=== PATIENT | female | born 1990 | race Caucasian/White ===

== ENCOUNTER 2017-11-02 12:53 | Outpatient (RCR) | payer OTHER, SELFPAY | END 2017-11-11 23:59 | LOC: NS 12:53 | DX: E66.9 Obesity, unspecified (principal); Z68.42 Body mass index [BMI] 45.0-49.9, adult; Z71.3 Dietary counseling and surveillance | CPT/HCPCS: 97802 ==

== ENCOUNTER 2017-12-01 09:30 | Outpatient (RCR) | payer OTHER, SELFPAY | END 2017-12-12 23:59 | LOC: NS 09:30 | DX: E66.9 Obesity, unspecified (principal); Z68.42 Body mass index [BMI] 45.0-49.9, adult; Z71.3 Dietary counseling and surveillance | CPT/HCPCS: 97803 ==

== ENCOUNTER 2018-01-05 11:30 | Outpatient (RCR) | payer OTHER, SELFPAY | END 2018-01-11 23:59 | LOC: NS 11:30 | DX: E66.9 Obesity, unspecified (principal); Z68.42 Body mass index [BMI] 45.0-49.9, adult; Z71.3 Dietary counseling and surveillance | CPT/HCPCS: 97803 ==

== ENCOUNTER 2018-02-02 11:30 | Outpatient (RCR) | payer OTHER, SELFPAY | END 2018-02-11 23:59 | LOC: NS 11:30 | DX: E66.9 Obesity, unspecified (principal); Z68.42 Body mass index [BMI] 45.0-49.9, adult; Z71.3 Dietary counseling and surveillance | CPT/HCPCS: 97803 ==

== ENCOUNTER 2018-02-23 09:24 | Outpatient (RCR) | payer OTHER, SELFPAY | END 2018-03-13 23:59 | LOC: NS 09:24 | DX: E66.9 Obesity, unspecified (principal); Z68.42 Body mass index [BMI] 45.0-49.9, adult; Z71.3 Dietary counseling and surveillance | CPT/HCPCS: 97803 ==

== ENCOUNTER 2018-03-30 13:43 | Outpatient (RCR) | payer OTHER, SELFPAY | END 2018-04-13 23:59 | LOC: NS 13:43 | DX: E66.9 Obesity, unspecified (principal); Z68.42 Body mass index [BMI] 45.0-49.9, adult; Z71.3 Dietary counseling and surveillance | CPT/HCPCS: 97803 ==

== ENCOUNTER 2018-05-11 10:00 | Outpatient (RCR) | payer OTHER, SELFPAY | END 2018-05-11 23:59 | LOC: NS 10:00 | DX: E66.9 Obesity, unspecified (principal); Z68.42 Body mass index [BMI] 45.0-49.9, adult; Z71.3 Dietary counseling and surveillance | CPT/HCPCS: 97803 ==

== ENCOUNTER 2018-06-01 08:53 | Outpatient (RCR) | payer OTHER, SELFPAY | END 2018-06-13 23:59 | LOC: NS 08:53 | DX: E66.9 Obesity, unspecified (principal); Z68.42 Body mass index [BMI] 45.0-49.9, adult; Z71.3 Dietary counseling and surveillance ==

== ENCOUNTER → 2021-02-25 07:38 | Outpatient (CLI) | payer OTHER, SELFPAY ==
--- NOTE | 2021-02-25 07:50 | CT_ITS ---
STUDY: CT ABDOMEN AND PELVIS WITH AND WITHOUT CONTRAST REASON FOR EXAM: Female, 30 years old. GROSS HEMATURIA RADIATION DOSAGE (If Supplied By Facility): CTDIvol = ( 25.65 ) mGy, DLP = ( 4006.87 ) mGycm TECHNIQUE: Transaxial images were obtained from the dome of the diaphragm to the symphysis pubis without oral contrast. IV 100mL Isovue-370 was administered. Sagittal and coronal images were reconstructed. Individualized dose optimization techniques were used for this CT. COMPARISON: Comparison is made with prior examination dated 03/20/2014. FINDINGS: The visualized lung bases are unremarkable. The visualized portions of the heart are within normal limits. There is decreased attenuation of the liver consistent with steatosis. The patient is status post cholecystectomy. Normal spleen. Normal pancreas. Normal bilateral adrenal glands. Normal right kidney. Normal left kidney. Normal visualized stomach. Normal small intestine. Normal colon. The appendix is visualized and appears normal. Normal abdominal aorta. Normal inferior vena cava. There is borderline retroperitoneal lymphadenopathy with enlarged nodes no greater than 10mm in the short axis diameter. Normal urinary bladder. Small bilateral ovarian follicles. Normal abdominal wall. Normal osseous structures. CT/CT Abd/Pelvis W/WO Contrast IMPRESSION: Normal unenhanced and enhanced CT of the abdomen and pelvis. Electronically Signed: Ze Cavanaugh MD at 9:20 EDT , Service support ,
== END ==
PROVIDERS: Referring Provider Nurse Practitioner Adult Health; Visit Provider Nurse Practitioner Adult Health
DX: N30.21 Other chronic cystitis with hematuria (principal); R31.0 Gross hematuria
CPT/HCPCS: 74178; Q9967

== ENCOUNTER → 2022-08-04 | Outpatient (CLI) | payer OTHER, SELFPAY ==
[2022-08-04 09:33] LABS: Hematocrit 46.3 % (37-47); Hemoglobin 15.3 g/dL (12.0-15.0); Mean Corpuscular Hgb 28.8 pg (27.0-32.0); Platelet Count 284 K/mm3 (150-450); RBC Distribution Width CV 12.4 % (11.6-14.6); RBC Distribution Width SD 39.5 fl (35.1-43.9); Red Blood Count 5.32 M/mm3 (4.2-5.4); White Blood Count 12.6 K/mm3 (4.4-11.0)
[2022-08-04 09:35] LABS: Color, Urine Yellow (Yellow); Glucose, Dipstick Normal (Normal); Ketone-Dipstick Negative (Negative); Leukocyte Esterase-Dipstick 500 /ul (Negative); Nitrite-Dipstick Negative (Negative); Occult Blood-Urine 10 /ul (Negative); Protein-Dipstick Negative (Negative); Urine Bilirubin Dipstick Negative (Negative); Urine Clarity Clear (Clear); Urine Urobilinogen Normal (Normal)
[2022-08-04 10:13] LABS: Anion Gap 7 (5-15); BUN 11 mg/dL (7-18); BUN/Creat Ratio 10.9 RATIO (10-20); Calcium,Total 9.4 mg/dL (8.5-10.1); Chloride 107 mmol/L (98-107); Cholesterol 217 mg/dL (200); Creatinine, Serum 1.01 mg/dL (0.55-1.02); EST Glomerular Filtration Rate 67 mL/min (>60); Est Glom Filt Rate - Afr Amer 81 mL/min (>60); Ferritin 143 ng/mL (8-252); Glucose 109 mg/dL (74-106); High Density Lipoprotein 33 mg/dL; Iron 62 ug/dL (50-170); Iron Binding Capacity,Total 282 ug/dL (250-450); Potassium 3.8 mmol/L (3.5-5.1); Sodium Level 139 mmol/L (136-145); Thyroid Stim Hormone (TSH) 3.48 uIU/mL (0.358-3.74); Triglycerides 114 mg/dL; Very Low Density Lipoprotein 23 mg/dL (5-40)
[2022-08-04 10:19] LABS: Vitamin B12 584 pg/mL (211-911); Vitamin D,25 Hydroxy 22.5 ng/mL
== END | disposition home or self-care (01) ==
LOC: LAB 08:49
PROVIDERS: Referring Provider Physician Assistant; Visit Provider Physician Assistant
DX: Z79.899 Other long term (current) drug therapy (principal)
CPT/HCPCS: 36415; 80048; 80061; 81002; 82306; 82607; 82728; 82746; 83540; 83550; 84443; 85027

== ENCOUNTER 2022-08-25 14:30 | Outpatient (RCR) | payer OTHER, SELFPAY ==
--- NOTE | 2022-08-15 15:01 | HP.PTEVAL_ITS ---
Patient's Visit Information BRIE NUNO is a 31 year old F referred to Physical Therapy by Dr. Casey Grant MD with a diagnosis of Peripheral Vertigo L. Date of Evaluation: 08/15/22 Physical Therapist: ANT ThmopsonT, OCS, CSCS - Visit Plan Frequency: 1x/Week Duration: 4-6 Weeks Plan: 1xweek for 4-6 weeks as needed for. positional checks(Did L Patrick today) and monitor need for adaptation exercises. - Subjective Dizzy spells for over a year. Doc says something in L ear causing. It started insidously one year ago. Spun the first day. Lasted two hours adn called off work. it went away after two hours. It happened a few more times. Was sent to neurologist and diagnosed with migraines but meds did not work. Secondary neuro doc may sent her for therapy. Had ENT tests. Dr. Grant did some testing . MRI was clear. Now is dizzy 2-3x/every couple days lasting less than a minute. Brought on by looking down and coming back up or looking up. Getting up out of bed. Feels normal much of other times but some days she is in a funk(gloomy mood). Sleep is Good. Employed selling paint and cleaning ladies. Struggles with second job due to head movements. Hobbies: Avoids sweeping floor due to constant movement of it. Only tried meds and none have helped. - Objective Walks normal with good balance into PT. Trasnfers I. Full cervical AROM without pain, UE AROM WNL and no pain. oculomotor is unremarkable today: no nystagmus with gaze or head shake. normal pursuit and saccades. Normal VOR wiht out symptoms. - skew eye deviation. - ocular tilt. - head thrust. - R HD. - L HD for nystagmus but did have asymmetrical dizzyness mildly. Treated with L patrick adn then no dizzyness with L HD. - Balance/Special Test Scores Functional Gait Assessment Score: 30 % Disability: 0 Dizziness Score: 66 - Goals Goal 1:: abolish dizzyness x 1 week Goal Time Frame: 4-6 Weeks Goal 2:: pt work and run vaccum without symptoms Goal Time Frame: 4-6 Weeks Goal 3:: I management of condition Goal Time Frame: 4-6 Weeks Goal 4:: <10 on DHI Goal Time Frame: 4-6 Weeks - Rehabilitation Potential Physical Therapy Diagnosis: Possible BPPV L vs vestibular hypofucntion Rehabilitation Potential: Fair - Anticipated Interventions Patient/Client Instruction: Educate patient on: Condition, Plan of Care For the Purpose of:: To increase tolerance to activity/condition/position Comment: adaptation and positional ex For the Purpose of:: To increase tolerance to activity/condition/position Thank you for the opportunity to evaluate your patient. For Medicare and Medicare HMO plans, please review the plan of care and approve it. It will need to be FAXED BACK to us at [phone] for Medicare purposes. For Medicare only, by signing this I certify the plan of care. Please let me know if there are questions or concerns regarding this plan of care. Physician Signature: Date:
--- NOTE | 2022-10-20 08:11 | HP.PT.NRP ---
BRIE NUNO was seen in my office for initial evaluation on 08/15/22. The following Plan of Care was established for this patient: Initial Frequency: 1x/Week Initial Duration: 4-6 Weeks Patient/Client Instruction: Educate patient on: Condition, Plan of Care For the Purpose of:: To increase tolerance to activity/condition/position For the Purpose of:: To increase tolerance to activity/condition/position This patient was last seen in our office 08/25/22. Pertinent comments regarding their Physical therapy will appear below: Pt seen 2 visits of POC and was 95% better at last session. she was to f/u a week later but did not schedule or attend. at this point, it has been over 6 weeks and I will discontinue due to nonattendance. At this point I will be discontinuing this patient from physical therapy. I would be happy to see this patient again in the future if found appropriate by the physician. Thank you! Lionel Giraldo, DPT, OCS, CSCS Balance/Gait/Functional tests - Balance/Special Test Scores Functional Gait Assessment Score: 30 % Disability: 0 Dizziness Score: 66
== END 2022-08-25 19:00 | disposition home or self-care (01) ==
LOC: PT 14:30
PROVIDERS: Referring Provider Psychiatry & Neurology Neurology; Visit Provider Psychiatry & Neurology Neurology
DX: H81.392 Other peripheral vertigo, left ear (principal)
CPT/HCPCS: 97161; 97530

== ENCOUNTER → 2022-10-14 | Outpatient (CLI) | payer OTHER, SELFPAY ==
[2022-10-14 10:11] LABS: Anion Gap 9 (5-15); BUN 13 mg/dL (7-18); BUN/Creat Ratio 12.5 RATIO (10-20); Calcium,Total 9.2 mg/dL (8.5-10.1); Chloride 103 mmol/L (98-107); Cholesterol 202 mg/dL (200); Creatinine, Serum 1.04 mg/dL (0.55-1.02); EST Glomerular Filtration Rate 65 mL/min (>60); Est Glom Filt Rate - Afr Amer 79 mL/min (>60); Glucose 105 mg/dL (74-106); High Density Lipoprotein 33 mg/dL; Potassium 3.8 mmol/L (3.5-5.1); Sodium Level 139 mmol/L (136-145); Triglycerides 161 mg/dL; Very Low Density Lipoprotein 32 mg/dL (5-40)
[2022-10-14 10:14] LABS: Insulin 39.4 mU/L (2.6-37.6)
[2022-10-14 10:16] LABS: Hemoglobin A1c 5.4 % (3.8-5.6)
== END | disposition home or self-care (01) ==
PROVIDERS: Referring Provider Physician Assistant; Visit Provider Physician Assistant
DX: R53.83 Other fatigue (principal)
CPT/HCPCS: 36415; 80048; 80061; 83036; 83525

== ENCOUNTER 2022-10-15 07:56 | Outpatient (RCR) | payer OTHER, SELFPAY | END 2022-11-11 23:59 | LOC: NS 07:56 | DX: Z71.3 Dietary counseling and surveillance (principal); E66.01 Morbid (severe) obesity due to excess calories; Z68.42 Body mass index [BMI] 45.0-49.9, adult | CPT/HCPCS: 97802 ==

== ENCOUNTER 2022-11-12 07:58 | Outpatient (RCR) | payer OTHER, SELFPAY | END 2022-12-12 23:59 | LOC: NS 07:58 | DX: Z71.3 Dietary counseling and surveillance (principal); E66.01 Morbid (severe) obesity due to excess calories; Z68.42 Body mass index [BMI] 45.0-49.9, adult | CPT/HCPCS: 97803 ==

== ENCOUNTER 2022-12-16 07:55 | Outpatient (RCR) | payer OTHER, SELFPAY | END 2023-01-11 23:59 | LOC: NS 07:55 | DX: Z71.3 Dietary counseling and surveillance (principal); E66.01 Morbid (severe) obesity due to excess calories; Z68.42 Body mass index [BMI] 45.0-49.9, adult | CPT/HCPCS: 97803 ==

== ENCOUNTER → 2023-02-04 | Outpatient (CLI) | payer OTHER, SELFPAY ==
--- NOTE | 2023-02-04 11:46 | NM_ITS ---
CLINICAL: 32-year-old female with history of chronic nausea and early satiety. SEMI-SOLID PHASE 99m Tc SULFUR COLLOID GASTRIC EMPTYING STUDY COMPARISON: None available FINDINGS: The patient was administered 1.1 mCi of 99m Tc sulfur colloid mixed with oatmeal and consumed per os. Image acquisitions in the anterior-posterior projections were obtained for 60 minutes. There is prompt visualization of the stomach. There is no gastroesophageal reflux identified. First order kinetics are maintained throughout the duration of the acquisitions. The T ? linear fit was calculated to be 52.27 minutes, (Normal: 12-56 minutes). NM/Gastric Emptying Study IMPRESSION: 1. NORMAL 99m Tc sulfur colloid semi-solid phase (oatmeal) gastric emptying imaging examination. A. There is upper limits of normal and preserved semi-solid phase gastric emptying compared to normal controls with maintained first order kinetics throughout all components of the examination. (Andrae et al, J Nucl Med Tech 38: 186, 2010). Electronically Signed: Nikolas Villalobos, at 23:30 EDT ,
== END | disposition home or self-care (01) ==
LOC: NM 11:45
PROVIDERS: Referring Provider Nurse Practitioner Adult Health; Visit Provider Nurse Practitioner Adult Health
DX: R11.10 Vomiting, unspecified (principal); R68.81 Early satiety
CPT/HCPCS: 78264; A9541

== ENCOUNTER 2023-02-10 11:42 | Outpatient (RCR) | payer OTHER, SELFPAY | END 2023-02-11 23:59 | LOC: NS 11:42 | DX: Z71.3 Dietary counseling and surveillance (principal); E66.01 Morbid (severe) obesity due to excess calories | CPT/HCPCS: 97803 ==

== ENCOUNTER → 2023-02-13 | Outpatient (CLI) | payer OTHER, SELFPAY ==
--- NOTE | 2023-02-13 08:42 | US_ITS ---
INDICATION: epigastric pain, early satiety -- RUQ EXAMINATION: Ultrasound US Abdomen RUQ (limited) TECHNIQUE: Sanchez scale and color doppler imaging was performed of the right upper quadrant. COMPARISON: 02/25/2021 CT. FINDINGS: LIVER: Normal echotexture. No evidence of a mass. No intrahepatic duct dilation. Hepatomegaly with the right lobe liver length measuring 22.3 cm. Diffuse increased echogenicity of the liver. GALLBLADDER: Status post cholecystectomy. COMMON BILE DUCT: Mildly dilated measuring 7 mm in diameter. PANCREAS: Visualized portions of the pancreas appear normal. RIGHT KIDNEY: Unremarkable. FREE FLUID: No free fluid in the right upper quadrant. US/Abdomen Limited IMPRESSION: Hepatomegaly and fatty infiltration of the liver. Electronically Signed: Dmitriy Beaver DO at 22:54 EDT ,
== END | disposition home or self-care (01) ==
LOC: US 08:41
PROVIDERS: Referring Provider Nurse Practitioner Adult Health; Visit Provider Nurse Practitioner Adult Health
DX: R10.13 Epigastric pain (principal); R68.81 Early satiety
CPT/HCPCS: 76705

== ENCOUNTER 2023-03-12 08:43 | Outpatient (RCR) | payer OTHER, SELFPAY | END 2023-03-13 23:59 | LOC: NS 08:43 | DX: Z71.3 Dietary counseling and surveillance (principal); E66.01 Morbid (severe) obesity due to excess calories; Z68.42 Body mass index [BMI] 45.0-49.9, adult | CPT/HCPCS: 97803 ==

== ENCOUNTER 2023-04-02 07:25 | Day surgery (SDC) | payer OTHER, SELFPAY ==
--- NOTE | 2023-04-02 07:38 | HP.PCM_ITS ---
History and Physical Date of Admission: 04/02/23 Chief Complaint: chronic vomiting Details: BRIE NUNO, is a 32 F who presents to the office today for chronic vomiting that began end of 2021. She had had intermittent vomiting for maybe the year prior. Now the vomiting occurs daily, different times of day. Can be 1-4x per day. No nausea. She gets a squeezing epigastic pain, then churning, then vomits. The epigastric pain lasts about an hour afterwards. Pain stays middle of upper abd. Emesis is undigested food after dinner. Eats dinner 7 pm, typically vomits 10 min after dinner. Can have bile emesis in the morning before eating. Gets full quickly. No relief with ondansetron. Some relief of the cramping pain with dicyclomine, but vomiting persists. No hx of heartburn or acid reflux. Neither omeprazole nor famotidine has helped with vomiting. Takes Linzess 145 mcg daily, has been on it for about 2 yrs, prior to that she m ight have constipation for a week and then bouts of diarrhea. Now bowels are normal. No melena or hematochezia. 09/2022 labs: creat 1.04, hgb a1c 5.4 s/p cholecystectomy 2009 PMH includes asthma, depression, anxiety, IBS, morbid obesity, PCOS, vertigo, migraines No marijuana ROS Const Constitutional: Positive for fatigue ENT ENT: No difficulty swallowing Cardio Cardiology: Positive for leg pain with exertion Gastro GI: Positive for abdominal pain and vomiting; No belching, bloating, change in bowel habits, change in stool character, coffee ground emesis, constipation, cramping, diarrhea, heartburn, difficulty swallowing, feeling full early, excessive flatus, incontinent of stools, Vomiting blood/hematemesis, Blood in stool, loose stools, Black,tarry stools, nausea/dyspepsia, pain with swallowing or other Musc Musculoskeletal: Positive for muscle cramps, leg pain at night and leg pain with exertion; No joint pain Skin Skin: No yellowing of the eye or itchy eyes Psych Psychiatric: Positive for anxiety, Positive for depression, Positive for Behavioral Problems and Positive for obsessions/compulsions Endo Endocrine: Positive for fatigue Aller/Imm Allergy/Immunologic: No itchy eyes Jose Maria/Lymp Hematologic/Lymphatic: Positive for easy bruising; No easy bleeding Exam Const General: cooperative and comfortable Nutritional Appearance: obese Orientation: alert, awake and oriented x3 Eyes Sclera: sclerae normal Resp Effort & Inspection: normal respiratory effort GI Inspection: obesity Palpation: soft, no hepatosplenomegaly, no masses and tender in the epigastrum Quality Reporting Tobacco Screening ([facility] 138) Smoking Status: Never smoker Assessment and Plan Assessment and Plan (1) Vomiting: Status: Chronic Plan: 32 yo female with chronic vomiting--typically after supper, preceded by epigastric pain. Symptoms began before she started Latuda. EGD to eval for bile acid reflux, H pylori, PUD, pyloric stenosis or other; f/u office visit after EGD to review results Gastric emptying study Trial of azithromycin 250 mg daily x 1 wk to see if that helps symptoms at all Consider US or HIDA (2) Early satiety: Status: Chronic Plan: as above (3) Epigastric abdominal pain: Status: Chronic Plan: as above Orders: Orders Gastric Emptying Study Today R11.10 - Vomiting, unspecified, R68.81 - Early satiety Medications: New azithromycin 250 mg PO DAILY 7 days 7 tabs 0RF I have examined the patient and the H&P has been reviewed. There are no clinical changes since date of exam.
[2023-04-02] MEDS: Lactated Ringers 1,000 ML 15 ML IV (07:51)
[2023-04-02 07:52] VITALS: BP 146/92; PULSE 80; RESP 18; TEMP 36.1; O2SAT 99; BMI 47.6
[2023-04-02 07:55] LABS: Internal QC Validated? YES +Cl - CLEAR BKGD; Pregnancy, Urine Negative Negative
--- NOTE | 2023-04-02 08:30 | IMM_PTH ---
PATIENT: BRIE NUNO LOC: EN U#:[id number] AGE/SX: 32/F ROOM: RE04/02/[address]: Dr. Larry Kirk DO : 1990 BED: DIS: 04/02/2023 SPEC #: [id number] RECD: 04/02/23 13:41 STATUS: MISAEL REQ #: [id number] CHAZ: 04/02/23 08:[address]: Larry Kirk DEPT: IMMUNOHISTOCHEMISTRY RECD BY: Lauren Gallagher ENTERED: 04/02/23 13:44 SP TYPE: IMMUNO OTHR DR: Dr. Edyta Huggins DO Tissues: B - Stomach, NOS Procedures: H Pylori (initial) PHYSICIAN & INSTITUTION [place] [id number] SPECIMEN INFORMATION: Tissue Source: B - Gastric body Clinical Info: Vomiting, early satiety, epigastric abdominal pain Specimen Number: [id number] CPT code: 03873 METHODOLOGY: Deparaffinized sections of prefer/formalin-fixed tissue or PAP/DQ stained slides are incubated with monoclonal/polyclonal antibodies/oligonucleotide probes. Localization is made via biotin free immunoperoxidase method. Appropriate controls are performed and reacted as expected. Results on target cell population are indicated in the following table: RESULTS: ANTIBODY / CLONE RESULT Block B H Pylori (polyclonal) negative These tests were developed and their performance characteristics determined by [facility]. They may not have been cleared or approved by the U.S. Food and Drug Administration. The FDA has determined that such clearance or approval is not necessary. The above immunohistochemical/dualISH markers are ordered and reviewed by the Pathologist. INTERPRETATION: B. Gastric body, biopsy: Negative for Helicobacter pylori organisms. SJ:александр 04/03/2023
--- NOTE | 2023-04-02 08:30 | EGD_PTH ---
PATIENT: BRIE NUNO LOC: EN U#:[id number] AGE/SX: 32/F ROOM: RE04/02/[address]: Dr. Larry Kirk DO : 1990 BED: DIS: 04/02/2023 SPEC #: [id number] RECD: 04/02/23 10:43 STATUS: MISAEL YANIQUE #: [id number] HCAZ: 04/02/23 08:[address]: Larry Kirk DEPT: SURGICAL PATHOLOGY RECD BY: Codi Abdi ENTERED: 04/02/23 11:50 SP TYPE: EGD BIOPSY OT DR: Dr. Edyta Huggins DO Tissues: A - Duodenum, NOS B - Gastric mucous membrane C - Esophagus, NOS Procedures: Special Stain Group II Surgery Specimen Level IV Alcian Blue/PAS (control) HEADER OPERATION: EGD ([facility]) PRE-OP DIAGNOSIS: Vomiting, early satiety, epigastric abdominal pain TISSUE SUBMITTED: A - Duodenum biopsy, B - Gastric body biopsy, C - Distal esophagus biopsy MICROSCOPIC DIAGNOSIS A. Duodenum, biopsy: Fragments of duodenal mucosa, no pathologic diagnosis. B. Gastric body, biopsy: Minimal gastritis. See microscopic description and comment. C. Distal esophagus, biopsy: Fragments of gastroesophageal mucosa with mild chronic inflammation. Intestinal metaplasia (goblet cell metaplasia) not identified. See comment. SJ:rg 04/03/2023 COMMENT B. The results of immunohistochemistry for Helicobacter pylori will be reported separately ([id number]). C. Alcian blue/PAS stain with matched control is used in the evaluation of the specimen. MICROSCOPIC DESCRIPTION Slides are reviewed. B. The specimen shows fragments of gastric mucosa with chronic inflammatory cell infiltrates in the lamina propria consisting of lymphocytes and plasma cells, consistent with minimal chronic gastritis. GROSS DESCRIPTION A - Received in fixative is one container labeled with the patient's name and designated duodenum biopsy. The specimen consists of multiple irregular fragments of light le soft tissue that in aggregate measure 0.8 x 0.5 x 0.1 cm. The specimen is totally submitted in one cassette. B - Received in fixative is one container labeled with the patient's name and designated gastric body. The specimen consists of two irregular fragments of light le soft tissue that in aggregate measure 0.7 x 0.5 x 0.1 cm. The specimen is totally submitted in one cassette. C - Received in fixative is one container labeled with the patient's name and designated distal esophagus. The specimen consists of multiple irregular fragments of light le soft tissue that in aggregate measure 1.0 x 0.5 x 0.1 cm. The specimen is totally submitted in one cassette. / AM:александр 04/02/2023 TC:3 CPT: 34125 x3, 23090
[2023-04-02 08:45] VITALS: BP 130/78; BP 146/92; PULSE 96; RESP 16; TEMP 36.2; O2SAT 97
--- NOTE | 2023-04-02 08:50 | OP.EGD_ITS ---
Patient Name: Danni Atkins Procedure Date: 04/02/2023 8:24 AM Date of : 1990 Age: 32 Procedure: Upper GI endoscopy Indications: Epigastric abdominal pain, Functional Dyspepsia Providers: Larry Kirk DO Referring MD: Larry Kirk DO Medicines: Monitored Anesthesia Care Patient Profile: This is a 32 year old female. Refer to note in patient chart for documentation of history and physical. Patient has symptoms of acute abdominal cramping and acute epigastric abdominal pain. Complications: No immediate complications. Procedure: Pre-Anesthesia Assessment: - Prior to the procedure, a History and Physical was performed, and patient medications and allergies were reviewed. The patient is competent. The risks and benefits of the procedure and the sedation options and risks were discussed with the patient. All questions were answered and informed consent was obtained. Patient identification and proposed procedure were verified by the physician. Mental Status Examination: normal. Prophylactic Antibiotics: The patient does not require prophylactic antibiotics. Prior Anticoagulants: The patient has taken no previous anticoagulant or antiplatelet agents. After reviewing the risks and benefits, the patient was deemed in satisfactory condition to undergo the procedure. The anesthesia plan was to use monitored anesthesia care (MAC). Immediately prior to administration of medications, the patient was re-assessed for adequacy to receive sedatives. The heart rate, respiratory rate, oxygen saturations, blood pressure, adequacy of pulmonary ventilation, and response to care were monitored throughout the procedure. The physical status of the patient was re-assessed after the procedure. After obtaining informed consent, the endoscope was passed under direct vision. Throughout the procedure, the patient's blood pressure, pulse, and oxygen saturations were monitored continuously. The gastroscope was introduced through the mouth, and advanced to the second part of duodenum. The upper GI endoscopy was accomplished without difficulty. The patient tolerated the procedure well. Scope In: 8:35:01 AM Scope Out: 8:40:43 AM Total Procedure Duration Time 0 hours 5 minutes 42 seconds Findings: The Z-line was irregular and was found 40 cm from the incisors. Biopsies were taken with a cold forceps for histology. Verification of patient identification for the specimen was done. Estimated blood loss was minimal. Bilious fluid was found in the stomach. Fluid aspiration was performed. Patchy mildly erythematous mucosa without bleeding was found in the gastric body. Biopsies were taken with a cold forceps for histology. Verification of patient identification for the specimen was done. Estimated blood loss was minimal. Patchy granular mucosa was found in the duodenal bulb. Biopsies were taken with a cold forceps for histology. Verification of patient identification for the specimen was done. Estimated blood loss was minimal. Impression: - Z-line irregular, 40 cm from the incisors. Biopsied. - Bilious gastric fluid. Fluid aspiration performed. - Erythematous mucosa in the gastric body. Biopsied. - Granular mucosa in the duodenal bulb. Biopsied. Recommendation: - Discharge patient to home. - Resume previous diet. - Continue present medications. - Await pathology results. Procedure Code(s): --- Professional --- 11285, Esophagogastroduodenoscopy, flexible, transoral; with biopsy, single or multiple CPT copyright 2017 [employer] [place] [employer]. All rights reserved. The codes documented in this report are preliminary and upon doctor of optometry review may be revised to meet current compliance requirements. Larry Kirk DO 04/02/2023 8:50:11 AM This report has been signed electronically. Number of Addenda: 0 Note Initiated On: 04/02/2023 8:24 AM
--- NOTE | 2023-04-02 08:50 | OP.CCLET_ITS ---
04/02/2023 Edyta Huggins Re : Upper GI endoscopy procedure for Danni Atkins Dear Joseluis This procedure was performed on March. My impressions and recommendations are as follows: Impressions : - Z-line irregular, 40 cm from the incisors. Biopsied. - Bilious gastric fluid. Fluid aspiration performed. - Erythematous mucosa in the gastric body. Biopsied. - Granular mucosa in the duodenal bulb. Biopsied. Recommendations : - Discharge patient to home. - Resume previous diet. - Continue present medications. - Await pathology results. My findings are described in the full procedure note, which is enclosed. If I can be of further assistance, please feel free to contact me at . Sincerely, Larry Kirk, 04/02/2023 8:50:11 AM This report has been signed electronically.
[2023-04-02 08:59] VITALS: BP 123/75; BP 146/92; PULSE 82; RESP 18; O2SAT 98
[2023-04-02 09:02] VITALS: BP 126/76; BP 146/92; PULSE 88; RESP 18; TEMP 36.2; O2SAT 97
[2023-04-02 09:13] VITALS: BP 146/92
== END 2023-04-02 09:43 | disposition home or self-care (01) ==
LOC: EN 07:26 → AC 07:27
PROVIDERS: Anesthesiology; Visit Provider Internal Medicine Gastroenterology
PROC: 0DJ08ZZ Inspection of Upper Intestinal Tract, Via Natural or Artificial Opening Endoscopic (ICD-10-PCS; CPT 43235; principal; 2023-04-02 08:25)
DX: K29.70 Gastritis, unspecified, without bleeding (principal); E66.01 Morbid (severe) obesity due to excess calories; Z90.49 Acquired absence of other specified parts of digestive tract; J45.909 Unspecified asthma, uncomplicated; K21.9 Gastro-esophageal reflux disease without esophagitis; Z79.899 Other long term (current) drug therapy
CPT/HCPCS: 43239; 81025; 88305; 88313; 88342; J7120; J2405

== ENCOUNTER → 2023-04-17 | Outpatient (CLI) | payer OTHER, SELFPAY ==
[2023-04-17 10:26] LABS: Platelet Count 268 K/mm3 (150-450); Reticulocyte Count 2.57 % (0.5-1.5)
[2023-04-17 10:31] LABS: Erythrocyte Sedimentation Rate 9 mm/hr (0-30)
[2023-04-17 10:32] LABS: Prothrombin Time (Protime)PT. 13.4 SECONDS (11.7-14.9)
[2023-04-17 10:50] LABS: Amylase 53 U/L (25-115); Ferritin 154 ng/mL (8-252); Iron 71 ug/dL (50-170); Iron Binding Capacity,Total 271 ug/dL (250-450); LDH 177 U/L (84-246); Lipase 32 U/L (13-75)
[2023-04-22 00:06] LABS: Anti-Centromere B Ab <0.2 AI (0.0-0.9); Anti-Chromatin <0.2 AI (0.0-0.9); Anti-Jo <0.2 AI (0.0-0.9); Anti-Mitochondrial AB <20.0 Units (0.0-20.0); Anti-Scleroderma-70 AB 0.3 AI (0.0-0.9); Anti-dsDNA Ab <1 IU/mL (0-9); Beef <0.10 kU/L (Class 0); Chocolate <0.10 kU/L (Class 0); Clam <0.10 kU/L (Class 0); Codfish <0.10 kU/L (Class 0); Corn <0.10 kU/L (Class 0); Egg, White <0.10 kU/L (Class 0); Egg, Whole <0.10 kU/L (Class 0); Milk (Cow) <0.10 kU/L (Class 0); Peanut <0.10 kU/L (Class 0); Pork <0.10 kU/L (Class 0); SCALLOP <0.10 kU/L (Class 0); SESAME SEED <0.10 kU/L (Class 0); SJOGREN'S Anti-SS-A test < 0.2 AI (0.0-0.9); SJOGREN'S Anti-SS-B test < 0.2 AI (0.0-0.9); Shrimp <0.10 kU/L (Class 0); Smith Ab <0.2 AI (0.0-0.9); Soybean <0.10 kU/L (Class 0); Walnut, (Food) <0.10 kU/L (Class 0); Wheat <0.10 kU/L (Class 0)
[2023-04-23 18:08] LABS: Albumin 3.6 g/dL (2.9-4.4); Alpha-1-Globulins 0.2 g/dL (0.0-0.4); Alpha-2-Globulins 0.9 g/dL (0.4-1.0); Anti-Smooth Muscle ABS 4 Units (0-19); Cytoplasmic Ab (C-ANCA) <1:20 titer (Neg:<1:20); Endomysial Antibody IgA Negative (Negative); Haptoglobin 166 mg/dL (33-278); Immunoglobulin A 128 mg/dL (87-352); Immunoglobulin E 20 IU/mL (6-495); Immunoglobulin G 1029 mg/dL (586-1602); Immunoglobulin M 51 mg/dL (26-217); PROEL- TOTAL PROTEIN 6.8 g/dL (6.0-8.5); Perinuclear Ab (P-ANCA) <1:20 titer (Neg:<1:20); t-Transglutaminase IgA <2 U/mL (0-3)
== END | disposition home or self-care (01) ==
LOC: LAB 08:59
PROVIDERS: Referring Provider Internal Medicine Gastroenterology; Visit Provider Internal Medicine Gastroenterology
DX: R10.13 Epigastric pain (principal); R11.10 Vomiting, unspecified
CPT/HCPCS: 36415; 82150; 82533; 82728; 82784; 82785; 83010; 83516; 83540; 83550; 83615; 83690; 84165; 85045; 85610; 85652; 86003; 86005; 86140; 86225; 86235; 86255; 86256; 86334

== ENCOUNTER → 2023-04-30 | Outpatient (CLI) | payer OTHER, SELFPAY ==
--- NOTE | 2023-04-30 09:16 | US_ITS ---
STUDY: ABDOMINAL ULTRASOUND - ELASTOGRAPHY REASON FOR VISIT: Female, 32 years old. Fatty liver. TECHNIQUE: Liver stiffness measurements were obtained on a [employer] RS 85 ultrasound machine using a CA 1-7 probe following the SRU guidelines. 3 measurements were obtained using a 2-D-SWE method. TheIQR/M was 22% suggesting a quality data set. TECHNICAL QUALITY: Adequate. COMPARISON: None. FINDINGS: Liver: There is no demonstrated mass lesion. Median liver stiffness measured 4 kPa. Abdomen: There is no demonstrated mass lesion. US/Elastography Parenchyma/Organ IMPRESSION: Liver stiffness measures 4 kPa compatible with FO (Normal) Metavir score. Electronically Signed: Ze Cavanaugh MD at 12:07 EDT ,
== END | disposition home or self-care (01) ==
LOC: US 09:15
PROVIDERS: Referring Provider Internal Medicine Gastroenterology; Visit Provider Internal Medicine Gastroenterology
DX: K75.81 Nonalcoholic steatohepatitis (NASH) (principal)
CPT/HCPCS: 76981

== ENCOUNTER → 2023-05-06 | Outpatient (CLI) | payer OTHER, SELFPAY ==
[2023-05-06 08:34] LABS: Vitamin B12 512 pg/mL (211-911); Vitamin D,25 Hydroxy 26.9 ng/mL
[2023-05-06 08:38] LABS: ALB/GLOB Ratio 0.9 RATIO (0.9-2.4); AST(SGOT) 29 U/L (15-37); Alanine Aminotransfer ALT/SGPT 50 U/L (13-56); Albumin, Serum 3.5 g/dL (3.2-5.0); Alkaline Phosphatase 81 U/L (45-117); Anion Gap 4 (5-15); BUN 14 mg/dL (7-18); BUN/Creat Ratio 13.5 RATIO (10-20); Calcium,Total 8.9 mg/dL (8.5-10.1); Chloride 105 mmol/L (98-107); Creatinine, Serum 1.04 mg/dL (0.55-1.02); EST Glomerular Filtration Rate 65 mL/min (>60); Est Glom Filt Rate - Afr Amer 78 mL/min (>60); Globulin 3.8 g/dL (2.2-4.2); Glucose 105 mg/dL (74-106); Magnesium 2.2 mg/dL (1.6-2.6); Potassium 3.9 mmol/L (3.5-5.1); Protein, Total 7.3 g/dL (6.4-8.2); Sodium Level 137 mmol/L (136-145); Thyroid Stim Hormone (TSH) 4.64 uIU/mL (0.358-3.74)
== END | disposition home or self-care (01) ==
LOC: LAB 07:31
DX: R25.2 Cramp and spasm (principal); I73.9 Peripheral vascular disease, unspecified
CPT/HCPCS: 36415; 80053; 82306; 82607; 83735; 84443

== ENCOUNTER 2023-05-12 08:22 | Outpatient (RCR) | payer OTHER, SELFPAY | END 2023-05-14 23:59 | LOC: NS 08:22 | DX: Z71.3 Dietary counseling and surveillance (principal); E66.01 Morbid (severe) obesity due to excess calories; Z68.42 Body mass index [BMI] 45.0-49.9, adult | CPT/HCPCS: 97803 ==

== ENCOUNTER → 2023-05-26 | Outpatient (CLI) | payer OTHER, SELFPAY ==
[2023-05-26 09:22] LABS: T3 Total - Triiodothyronine 1.41 ng/mL (0.6-1.81); Vitamin D,25 Hydroxy 28.5 ng/mL
[2023-05-26 09:28] LABS: T4 Free Direct 0.93 ng/dL (0.76-1.46); Thyroid Stim Hormone (TSH) 3.47 uIU/mL (0.358-3.74)
[2023-05-27 19:07] LABS: Thyroglobulin Antibody < 1.0 IU/mL (0.0-0.9); Thyroid Peroxidase AB < 9 IU/mL (0-34)
== END | disposition home or self-care (01) ==
LOC: LAB 08:04
DX: R79.89 Other specified abnormal findings of blood chemistry (principal); E55.9 Vitamin D deficiency, unspecified
CPT/HCPCS: 36415; 82306; 84439; 84443; 84480; 86376; 86800

== ENCOUNTER 2023-06-03 08:23 | Outpatient (RCR) | payer OTHER, SELFPAY | END 2023-06-13 23:59 | LOC: NS 08:23 | DX: Z71.3 Dietary counseling and surveillance (principal); E66.01 Morbid (severe) obesity due to excess calories; Z68.42 Body mass index [BMI] 45.0-49.9, adult | CPT/HCPCS: 97803 ==

== ENCOUNTER → 2023-07-01 | Outpatient (CLI) | payer OTHER, SELFPAY ==
[2023-07-01 09:25] LABS: Hepatitis B Surface Antibody Non-Reactive
== END | disposition home or self-care (01) ==
LOC: LAB 08:24
DX: Z09 Encounter for follow-up examination after completed treatment for conditions other than malignant neoplasm (principal)
CPT/HCPCS: 36415; 86706

== ENCOUNTER 2023-07-30 08:51 | Outpatient (RCR) | payer OTHER, SELFPAY | END 2023-08-13 23:59 | LOC: NS 08:51 | DX: Z71.3 Dietary counseling and surveillance (principal); E66.01 Morbid (severe) obesity due to excess calories; Z68.43 Body mass index [BMI] 50.0-59.9, adult | CPT/HCPCS: 97803 ==

== ENCOUNTER → 2023-09-02 | Outpatient (CLI) | payer OTHER, SELFPAY ==
[2023-09-02 09:14] LABS: Erythrocyte Sedimentation Rate 4 mm/hr (0-30)
[2023-09-02 09:16] LABS: Absolute Lymphocyte Count 3.15 X10^3/uL (0.83-4.51); Basophil# 0.04 X10^3/uL; Basophil% 0.4 % (0-1); Eosinophil# 0.22 X10^3/uL; Hematocrit 46.1 % (37-47); Lymphocyte # 3.15 X10^3/ul (0.83-4.51); Lymphocyte % 28.4 % (19-41); Mean Corp Hgb Conc 32.5 g/dL (32-36); Mean Corpuscular Hgb 28.3 pg (27.0-32.0); Monocyte# 0.65 X10^3/uL; Monocyte% 5.9 % (0-10); NRBC Flagged by Analyzer 0 % (0-5); Neutrophil % 62.8 % (47-70); Platelet Count 261 K/mm3 (150-450); RBC Distribution Width CV 12.2 % (11.6-14.6); White Blood Count 11.1 K/mm3 (4.4-11.0)
[2023-09-02 09:31] LABS: Vitamin B12 613 pg/mL (211-911); Vitamin D,25 Hydroxy 48.4 ng/mL
[2023-09-02 09:43] LABS: ALB/GLOB Ratio 0.8 RATIO (0.9-2.4); AST(SGOT) 34 U/L (15-37); Alanine Aminotransfer ALT/SGPT 53 U/L (13-56); Albumin, Serum 3.4 g/dL (3.2-5.0); Alkaline Phosphatase 85 U/L (45-117); Anion Gap 5 (5-15); BUN 12 mg/dL (7-18); BUN/Creat Ratio 12.1 RATIO (10-20); Bilirubin, Direct 0.09 mg/dL (0.00-0.30); Calcium,Total 9.3 mg/dL (8.5-10.1); Chloride 106 mmol/L (98-107); Cholesterol 222 mg/dL (200); Creatinine, Serum 0.99 mg/dL (0.55-1.02); EST Glomerular Filtration Rate 68 mL/min (>60); Est Glom Filt Rate - Afr Amer 82 mL/min (>60); Glucose 116 mg/dL (74-106); High Density Lipoprotein 32 mg/dL; Potassium 3.9 mmol/L (3.5-5.1); Protein, Total 7.4 g/dL (6.4-8.2); Sodium Level 138 mmol/L (136-145); Thyroid Stim Hormone (TSH) 3.22 uIU/mL (0.358-3.74); Triglycerides 162 mg/dL; Very Low Density Lipoprotein 32 mg/dL (5-40)
[2023-09-02 09:51] LABS: Hemoglobin A1c 5.6 % (3.8-5.6)
[2023-09-03 12:08] LABS: Anti-Centromere B Ab <0.2 AI (0.0-0.9); Anti-Chromatin <0.2 AI (0.0-0.9); Anti-Jo <0.2 AI (0.0-0.9); Anti-Scleroderma-70 AB 0.3 AI (0.0-0.9); Anti-dsDNA Ab <1 IU/mL (0-9); RNP Ab 0.9 AI (0.0-0.9); SJOGREN'S Anti-SS-A test < 0.2 AI (0.0-0.9); SJOGREN'S Anti-SS-B test < 0.2 AI (0.0-0.9); Smith Ab <0.2 AI (0.0-0.9)
== END | disposition home or self-care (01) ==
LOC: LAB 08:15
PROVIDERS: Internal Medicine Gastroenterology
DX: R25.2 Cramp and spasm (principal); F33.1 Major depressive disorder, recurrent, moderate; E66.01 Morbid (severe) obesity due to excess calories; R73.9 Hyperglycemia, unspecified; K58.9 Irritable bowel syndrome, unspecified
CPT/HCPCS: 36415; 80053; 80061; 82248; 82306; 82607; 83036; 84443; 85025; 85652; 86140; 86225; 86235

== ENCOUNTER → 2023-10-13 | Outpatient (CLI) | payer OTHER, SELFPAY ==
--- OUTSIDE RECORDS SUMMARY | 2023-10-13 13:38 | XMS RPT_ITS | CCD ---
Author Name Unknown Address [address] [place] [address] Organization [facility] Care Team Providers Care Manufacturing Area Manager Name Role Phone RUIZ HOSKINS, DR ARCINIEGA Primary Care Physician [phone] ADRIAN BRIGHT Attending Unavailable SYSTEM, PROVIDER NOT IN Primary Care Unavaila ble PROVIDER, UNKNOWN Attending Unavailable PROVIDER, UNKNOWN Admitting Unavailable FREDDY ALMEIDA Referring Unavailable RUIZ HOSKINS, DR ARCINIEGA Primary Care Physician TEDDY PERALES Attending Unavailable SUZE MELCHOR Referring Unavailable RUIZ HOSKINS, DR ARCINIEGA Primary Care Physician Suze Melchor DO Primary Care Provider RUIZ HOSKINS, DR ARCINIEGA Primary Care Unavailable PEDRO CHOWDHURY PA-C Attending Unavailab le RUIZ , DR ARCINIEGA Attending Unavailable RUIZ DO, DR ARCINIEGA Primary Care Unavailable RUIZ , DR ARCINIEGA Attending Unavailable RUIZ , DR ARCINIEGA Primary Care Unavailable RUIZ HOSKINS, DR ARCINIEGA Primary Care Unavailable EMI HOPEPR MD Attending Unavailable RUIZ , DR ARCINIEGA Attending Unavailable RUIZ DO, DR ARCINIEGA Primary Care Unavailable RUIZ , DR ARCINIEGA Primary Care Unavailable MORGAN FUNK MD Attending Unavailable Allergies Allergy Classification Reported Allergen(s) Allergy Type Date of Onset Reaction(s) Facility (11 sources) Acetaminophen / Codeine; Translations: [acetaminophen-code ine] Drug Allergy Unknown (qualifier value) [facility] (12 sources) Acetaminophen / HYDROcodone; Translations: [acetaminophen-hydr ocodone] Drug Allergy 02-07-20 17 Latex (substance), [facility] (13 sources) Latex; Translations: [LATEX] Allergy to substance 02-07-20 17 [facility] (12 sources) Penicillin; Translations: [penicillin] Drug Allergy 02-07-20 17 Edema (finding), Swelling [facility] (12 sources) Sulfamethoxazole / Trimethoprim; Translations: [sulfamethoxazole-t rimethoprim] Drug Allergy 10-13-19 Weal (disorder), [facility] (1 source) Acetaminophen / Codeine; Translations: [ACETAMINOPHEN-CODE INE] Drug Allergy 10-26-19 [facility] (1 source) Acetaminophen / HYDROcodone; Translations: [HYDROCODONE-ACETAM INOPHEN] Drug Allergy 10-26-19 [facility] (1 source) peanut allergenic extract; Translations: [PEANUT] Drug Allergy 10-26-19 [facility] (1 source) Penicillins; Translations: [PENICILLINS] Propensity to adverse reactions to drug (disorder) 10-26-19 [facility] (1 source) Sulfonamides (Antibiotic); Translations: [SULFA (SULFONAMIDE ANTIBIOTICS)] Propensity to adverse reactions to drug (disorder) 10-26-19 [facility] (9 sources) peanut Food allergy anaphylaxis [facility] (1 source) Acetaminophen Drug Allergy 04-03-20 17 Hives, Other: See Comments, Rash, Swelling [facility] Work Phone: Medications Current Medications Medication Drug Class(es) Dates Sig (Normalized) Sig (Original) [id number] 200 actuat albuterol 0.09 mg/actuat metered dose inhaler (12 sources) beta2-Adrenergic Agonist Start: 02-26-2023 take 2 puff(s) by inhalation every four hours as needed for wheezing ProAir HFA MDI (90 mcg/inh) inhalation aerosol 2 puff(s), Inhalation, q4h, PRN as needed for wheezing, # 8.5 gram(s), 1 Refill(s), Pharmacy: [id number], Cough, 170.2, cm, 02/26/23 7:36:00 EDT, Height, kg, 02/26/23 7:36:00 EDT, Dosing Weight Start Date: 02/26/23 Status: Ordered Completed/Discontinued Medications Medication Drug Class(es) Dates Sig (Normalized) Sig (Original) benzonatate 100 mg oral capsule (1 source) Non-narcotic Antitussive Start: 10-13-2019 take 2 capsules by mouth every eight hours as needed benzonatate (TESSALON PERLE) 100 mg capsule Take 2 capsules by mouth three times daily as needed. 30 capsule 0 10/13/2019 Active Problems Active Problems Problem Classification Problem Date Documented Da te Episodic/Chronic Anxiety disorders (11 sources) Generalized anxiety disorder 04-05-2021 Chronic Asthma (11 sources) Asthma 08-23-2020 Chronic Conditions associated with dizziness or vertigo (8 sources) Other peripheral vertigo, left ear; Translations: [Vertigo] Onset: 08-13-2022 Episodic Diabetes mellitus without complication (6 sources) Hyperglycemia 10-04-2020 Episodic Headache; including migraine (11 sources) Migraine 05-06-2019 Chronic Menstrual disorders (4 sources) Excessive and frequent menstruation with regular cycle; Translations: [Dysmenorrhea, unspecified] Onset: 06-15-2023 Chronic Mood disorders (11 sources) Depressive disorder; Translations: [Recurrent major depressive episodes, moderate ] 04-29-2019 Chronic Nausea and vomiting (4 sources) Vomiting 12-04-2022 Episodic Other aftercare (1 source) Long-term current use of drug therapy; Translations: [Other penitentiary (current) drug therapy] Episodic Other endocrine disorders (11 sources) Polycystic ovaries 05-06-2019 Chronic Other gastrointestinal disorders (11 sources) Irritable bowel syndrome 05-10-2021 Chronic Other infections; including parasitic (11 sources) Trichomonal vaginitis 03-19-2021 Episodic Other injuries and conditions due to external causes (1 source) Traumatic AND/OR non-traumatic injury; Translations: [Other injury of unspecified body region, initial encounter] Onset: 09-30-2022 Episodic Other nervous system disorders (2 sources) Narcolepsy with cataplexy; Translations: [Narcolepsy with cataplexy] Onset: 08-13-2022 Chronic Other nervous system disorders (5 sources) Narcolepsy 08-28-2022 Chronic Other non-traumatic joint disorders (9 sources) Knee pain 03-11-2022 Episodic Other nutritional; endocrine; and metabolic disorders (11 sources) Body mass index 40+ - severely obese 10-04-2020 Chronic Other nutritional; endocrine; and metabolic disorders (11 sources) Morbid obesity 10-04-2020 Chronic Other upper respiratory disease (10 sources) Allergic rhinitis 08-06-2021 Chronic Otitis media and related conditions (6 sources) Dysfunction of eustachian tube 07-14-2019 Episodic Ovarian cyst (1 source) Cyst of ovary; Translations: [Unspecified ovarian cyst, unspecified side] Onset: 07-08-2021 Episodic Residual codes; unclassified (2 sources) Obstructive sleep apnea (adult) (pediatric); Translations: [Obstructive sleep apnea (adult) (pediatric)] Onset: 08-13-2022 Chronic Unclassified (11 sources) Patient encounter status 10-04-2020 Past or Other Problems Problem Classification Problem Date Documented Da te Episodic/Chronic Genitourinary symptoms and ill-defined conditions (2 sources) Dysuria; Translations: [Dysuria] Onset: 02-26-2023 Episodic Results Test Name Value Interpretation Reference Range Facil ity Vital Signs Date Time Vital Sign Value Performing Clinician Olga villa 09-30-2022 19:32-0500 Blood Pressure Location MORGAN FUNK MD [facility] 09-30-2022 19:32-0500 Blood Pressure Method MORGAN FUNK MD [facility] 09-30-2022 19:32-0500 Body height 170.2 cm MORGAN FUNK MD [facility] 09-30-2022 19:32-0500 Body temperature 98.24 [degF] MORGAN FUNK MD [facility] 09-30-2022 19:32-0500 Body weight 134.1 kg MORGAN FUNK MD [facility] 09-30-2022 19:32-0500 Diastolic Blood Pressure Non-Invasive 92 1 MORGAN FUNK MD [facility] 09-30-2022 19:32-0500 Heart rate 103 /min MORGAN FUNK MD [facility] 09-30-2022 19:32-0500 Respiratory rate 20 /min MORGAN FUNK MD [facility] 09-30-2022 19:32-0500 Systolic Blood Pressure Non-Invasive 153 1 MORGAN FUNK MD [facility] 03-26-2022 23:41-0400 Diastolic blood pressure 86 mm[Hg] SUHAIL DURESKA DO [facility] 03-26-2022 23:41-0400 Heart rate 84 /min SUHAIL DURESKA DO [facility] 03-26-2022 23:41-0400 Respiratory rate 18 /min SUHAIL DURESKA DO [facility] 03-26-2022 23:41-0400 Systolic blood pressure 129 mm[Hg] SUHAIL DURESKA DO [facility] 03-26-2022 21:51-0400 Body temperature 98.24 [degF] SUHAIL DURESKA DO [facility] 03-26-2022 21:51-0400 Diastolic blood pressure 93 mm[Hg] SUHAIL DURESKA DO [facility] 03-26-2022 21:51-0400 Heart rate 87 /min SUHAIL DURESKA DO [facility] 03-26-2022 21:51-0400 Respiratory rate 18 /min SUHAIL DURESKA DO [facility] 03-26-2022 21:51-0400 Systolic blood pressure 162 mm[Hg] SUHAIL LINDYARTURO DO [facility] 07-08-2021 12:46-0400 Diastolic blood pressure 65 mm[Hg] DR MORGAN COUCH MD [facility] 07-08-2021 12:46-0400 Heart rate 72 /min DR MORGAN COUCH MD [facility] 07-08-2021 12:46-0400 Respiratory rate 16 /min DR MORGAN COUCH MD [facility] 07-08-2021 12:46-0400 Systolic blood pressure 125 mm[Hg] DR MORGAN COUCH MD [facility] 07-08-2021 11:18-0400 Diastolic blood pressure 78 mm[Hg] DR MORGAN COUCH MD [facility] 07-08-2021 11:18-0400 Heart rate 78 /min DR MORGAN COUCH MD [facility] 07-08-2021 11:18-0400 Respiratory rate 16 /min DR MORGAN COUCH MD [facility] 07-08-2021 11:18-0400 Systolic blood pressure 128 mm[Hg] DR MORGAN COUCH MD [facility] 07-08-2021 09:56-0400 Body temperature 98.42 [degF] DR MORGAN COUCH MD [facility] 07-08-2021 09:56-0400 Body weight 131.[address] MORGAN COUCH MD [facility] 07-08-2021 09:56-0400 Diastolic blood pressure 87 mm[Hg] DR MORGAN COUCH MD [facility] 07-08-2021 09:56-0400 Heart rate 84 /min DR MORGAN COUCH MD [facility] 07-08-2021 09:56-0400 Respiratory rate 16 /min DR MORGAN COUCH MD [facility] 07-08-2021 09:56-0400 Systolic blood pressure 158 mm[Hg] DR MORGAN COUCH MD [facility] Encounters Encounter Date Encounter Type Care Provider Facility Start: 08-19-2023 End: 08-20-[address] SUZE MELCHOR DO Facility:A Start: 08-19-2023 End: 08-19-[address] SUZE MELCHOR DO [facility] Start: 06-15-2023 End: 06-20-[address] SUZE MELCHOR DO Facility:B Start: 05-15-2023 End: 05-16-[address] SUZE MELCHOR DO Facility:B Start: 05-15-2023 End: 05-15-[address] SUZE MELCHOR DO [facility] Start: 02-26-2023 End: 03-03-[address] SUZE MELCHOR DO Facility:B Start: 02-26-2023 End: 03-02-[address] SUZE MELCHOR DO [facility] Start: 01-01-2023 End: 01-02-[address] SUZE MELCHOR DO Facility:B Start: 01-01-2023 End: 01-01-2023 Patient encounter procedure PEDRO CHOWDHURY PA-C [facility] Start: 12-30-2022 Telephone encounter Dmitriy james APRN.CNP Work Phone: [facility] Procedures Date Procedure Procedure Detail Performing Clinician Start: 09-14-[address] LUISITO COUCH MD Start: 09-14-[address] and [address] MORGAN COUCH MD Plan of Treatment Date Care Activity Detail Author Start: 09-14-2022 DEPRESSION ASSESSMENT DEPRESSION ASS ESSMENT [facility] Start: 11-30-2019 HPV TESTING HPV TESTING [facility] Start: 2010 PAP TESTING PAP TESTING [facility] Start: 2008 Urine microalbumin profile DTAP,TDAP ,TD (1 - Tdap) [facility] Start: 11-30-2007 HEPATITIS C SCREENING HEPATITIS C SC SHAUNA [facility] Start: 11-30-2007 HIV SCREENING HIV SCREENING [facility] Start: 06-01-1990 COVID-19 VACCINE (#1) COVID-19 VACCI NE (#1) [facility] Start: 1989 HEPATITIS B (1 of 3 - 3-dose series) HEPATITIS B (1 of 3 - 3-dose series) [facility] Immunizations Immunization Date Immunization Notes Care Provider Fa cili 08-28-2022 influenza, injectabl e, quadrivalent, contains preservative; Translations: [Fluarix PF Quadrivalent ] MORGAN FUNK MD [facility] 08-06-2021 influenza, injectabl e, quadrivalent, contains preservative; Translations: [Fluarix PF Quadrivalent ] DR SUZE MELCHOR DO [facility] 07-21-2020 influenza virus vaccine, unspecified formulation DR SUZE MELCHOR DO [facility] 06-25-2018 influenza virus vaccine, unspecified formulation SUHAIL FORDE DO [facility] 10-06-2017 influenza virus vaccine, unspecified formulation SUHAIL FORDE DO [facility] 06-22-2015 influenza virus vaccine, unspecified formulation SUHAIL FORDE DO [facility] 06-22-2015 tetanus toxoid, redu antoine diphtheria toxoid, and acellular pertussis vaccine, adsorbed DR MORGAN COUCH MD [facility] 10-20-2002 tetanus toxoid, redu antoine diphtheria toxoid, and acellular pertussis vaccine, adsorbed DR MORGAN COUCH MD [facility] 07-08-2002 hepatitis B pediatri c vaccine DR MORGAN COUCH MD [facility] 02-25-2002 hepatitis B pediatri c vaccine DR MORGAN COUCH MD [facility] 02-25-2002 measles/mumps/rubell a virus vaccine DR MORGAN COUCH MD [facility] 12-10-2001 hepatitis B pediatri c vaccine DR MORGAN COUCH MD [facility] 01-27-[address] Sabiha COUCH MD [facility] 11-12-1994 diphtheria, tetanus toxoids and acellular pertussis vaccine, unspecified formulation DR MORGAN COUCH MD [facility] 11-12-1994 poliovirus vaccine, inactivated DR MORGAN COUCH MD [facility] 08-25-1991 diphtheria, tetanus toxoids and acellular pertussis vaccine, unspecified formulation DR MORGAN COUCH MD [facility] 08-25-1991 haemophilus influenz ae type b vaccine, PRP-T conjugate DR MORGAN COUCH MD [facility] 08-25-1991 hepatitis B pediatri c vaccine DR SUZE MELCHOR DO [facility] 08-25-1991 measles/mumps/rubell a virus vaccine DR MORGAN COUCH MD [facility] 08-25-1991 [address] vaccine, inactivated DR MORGAN COUCH MD [facility] 09-23-1990 diphtheria, tetanus toxoids and acellular pertussis vaccine, unspecified formulation DR MORGAN COUCH MD [facility] 05-27-1990 diphtheria, tetanus toxoids and acellular pertussis vaccine, unspecified formulation DR MORGAN COUCH MD [facility] 05-27-1990 poliovirus vaccine, inactivated DR MORGAN COUCH MD [facility] 02-19-1990 diphtheria, tetanus toxoids and acellular pertussis vaccine, unspecified formulation DR MORGAN COUCH MD [facility] 02-19-1990 poliovirus vaccine, inactivated DR MORGAN COUCH MD [facility] Payers Date Payer Category Payer Private Health Insurance [id number] 2019 Private Health Insurance [id number] 2019 Private Health Insurance [employer] PPO [id number] 2019-Present [phone] [address] [place] [address] PPO [id number] 1989 Unknown [id number] 1989 Unknown [id number] 1989 Unknown [id number] [id number] 1989 Unknown [id number] [id number] 1989 Unknown [id number] [id number] 1989 Unknown [id number] [id number] 1989 Unknown [id number] [id number] 1989 Unknown [id number] Unknown [id number] Social History Date Type Detail Facility Start: 05-06-2019 End: 12-30-2022 Never smoked tobacco (finding) [facility] Functional Status Date Assessment Result Facility 09-30-2022 Functional Status Assistive Device None A [facility] 03-26-2022 Functional Status Independent [facility] 03-26-2022 Functional Status Standard Safet y ID band on, Call device within reach, Bed in low position, Wheels locked, Upper/Half-Length side-rails up, Bedside Cart Locked, Visitor at bedside, Safety level maintained [facility] Mental Status Date Assessment Result Facility 09-30-2022 Mental Status Oriented x 4 [facility] 03-26-2022 Mental Status Orientation Oriented x 4 [facility] 03-26-2022 Mental Status [facility] Clinical Notes 07-08-2021 to 05-15-2023 Note Date & Type Note Facility [facility] 06-16-2023 Note. MICRO - Microbiology PROCEDURE: Urine Culture [*1] SOURCE: Urine, Clean Catch BODY SITE: COLLECTED DATE/TIME: 02/26/2023 12:47 EDT RECEIVED DATE/TIME: 02/26/2023 19:48 EDT START DATE/TIME: 02/26/2023 19:48 EDT FREE TEXT SOURCE: FINAL REPORTS Final Report [] Verified Date/Time/Personnel: 02/27/2023 14:27 EDT 10,000 - 50,000 cfu/ml Multiple bacterial morphotypes present. Probable Contamination. Suggest recollection if clinically indicated. Performing Locations *1: This test was performed at: [facility], [address] [place] [address], [address] , [facility] ([place])12-30-2022 Miscellaneous Notes* Telephone Encounter - Terri Goodman - 12/30/2022 7:20 PM EDT Patient given results and verbalized understanding of instructions given. Terri Goodman * Telephone Encounter - Dmitriy Ramirez APRN.CNP - 12/30/2022 6:46 PM EDT No abnormal findings noted on chest x-ray. Continue therapies as discussed. Follow-up with PCP if symptoms are not improving. Dmitriy Ramirez APRN.CNP [facility] Discharge instructions Patient Education 09/30/2022 19:46:09 Skin Avulsion Skin Tear (Skin Avulsion) A skin avulsion is a tearing of the top layer of skin. This commonly happens after a fall or other injury. It also tends to be more common in older people, or those taking blood thinners or steroids for long periods of time. Home care These guidelines will help you care for your wound at home: Keep the wound clean and dry for the first 24 to 48 hours, or as your healthcare provider advises. If there is a dressing or bandage, change it when it gets wet or dirty. Otherwise, leave it on for the first 24 hours, then change it once a day or as often as the doctor says. If stitches or elo were used, check the wound every day. After taking off the dressing, wash the area gently with soap and water. Clean as close to the stitches as you can. Avoid washing or rubbing the stitches directly. After 3 days you can keep the bandages off the wound, unless told otherwise, or there is continued drainage. Allow the wound to be open to the air. Keep a thin layer of antibiotic ointment on the cut. This will keep the wound clean, make it easierto remove the stitches, and reduce scarring. If your wound is oozing, you can put a nonstick dressing over it. Then, reapply the bandage or dressing as you were told. You can shower as usual after the first 24 hours, but don't soak the area in water (no baths or swimming) until the stitches or elo are taken out. If surgical tape was used, keep the area clean and dry. If it becomes wet, blot it dry with a cleantowel. If skin glue was used, don't put any creams, lotions, or antibiotic ointments on it. These can dissolve the glue. Usually the glue will flake off in about 5 to 10 days by itself. Try to resist picking it off before that so the wound doesn't open up. When it gets wet, pat it dry. Here is some information about medicine: You may use wrcd-[id number] medicine such as acetaminophen or ibuprofen to control pain, unless another pain medicine was given. If you have chronic liver or kidney disease or ever had a stomach ulcer or gastrointestinal bleeding, talk with your doctor before using these medicines. If you were given antibiotics, take them until they are all used up. It is important to finish the antibiotics even if the wound looks better. This will ensure that the infection has cleared. Follow-up care Follow up with your healthcare provider, or as advised. Watch for any signs of infection, such as increasing redness, swelling, or pus coming out. If this happens, don't wait for your scheduled visit. Instead, see a doctor sooner. Stitches or elo are usually taken out within 5 to 14 days. This varies depending on what part of your body they are on, and the type of wound. The doctor will tell you how long stitches should beleft in. If surgical tape was used, it is usually left on for 7 to 10 days. You can remove surgical tape after that unless you were told otherwise. If you try to remove it, and it is too hard, soaking can help. Surgical tape strips will eventually fall off on their own. If the edges of the cut pull apart, stop removing the tape or strips and follow up with your doctor As mentioned above, skin glue will flake off by itself in 5 to 10 days, so you don't need to pull it off. If any X-rays were done, you will be notified of any changes that may affect your care. When to seek medical advice Call your healthcare provider right away if any of these occur: Increasing pain in the wound Redness, swelling, or pus coming from the wound Fever of 100.4 F (38 C) or higher, or as directed by your healthcare provider Sutures or elo come apart or fall out before your next appointment and the wound edges look as if they will re-open Surgical tape closures fall off before 7 days, and the wound edges look as if they will re-open Bleeding not controlled by direct pressure [id number] [employer]. [address] [place] [address]. All rights reserved. This information is not intended as a substitute for professional medical care. Always follow yourhealthcare professional's instructions. Follow Up Care 09/30/2022 19:26:16 With:SUZE MELCHOR Address: [address] [place] [address] [place] [address]- [phone] Business (1) When:2-4 days Comments:Follow-up as needed [facility] 01-17-2023 Emergency department Discharge summary Discharge Instructions Thank you for allowing [facility] to assist you with your healthcare needs. The following is importantdischarge information regarding your hospital visit. Diagnosis from Today's Visit Avulsion of skin Laceration of finger What to Do Next Instructions from Your Care Team No qualifying data available. Post Acute Orders No qualifying data available. You Need to Schedule the Following Appointments Follow Up with SUZE MELCHOR When Within 2-4 days Why: Follow-up as needed Where: [address] [place] [address] [place] [address] [phone] Business (1) Allergies Bactrim (Hives) Latex Peanuts (anaphylaxis) Tylenol with Codeine (Unknown) Vicodin (Latex) penicillin (Edema, Hives) Medications Please ask your primary doctor or pharmacist before taking any other medication not listed, including over the counter drugs, herbal medications, vitamins and or supplements as they may interact withyour home medications. What How Much When Why Instructions Last Dose Unchanged albuterol (ProAir HFA MDI (90 mcg/ inh) inhalation aerosol) 2 puff(s) by inhalation Every 4 hours as needed for as needed for wheezing Cough Unchanged ascorbic acid (Vitamin C 1000 mg oral tablet) by mouth Once a day Unchanged famotidine (Pepcid 20 mg oral tablet) by mouth Two (2) times a day Unchanged fluticasone-salmeterol (Advair Diskus 100 mcg-50 mcg inhalation powder) 1 puff(s) by inhalation Two (2) times a day Unchanged herbal/ nutritional product (Probiotic) Unchanged linaclotide (Linzess 145 mcg oral capsule) 1 cap by mouth Once a day before a meal 30 minutes before breakfast. Do NOT crush/ chew Unchanged lurasidone (Latuda 40 mg oral tablet) 1 tab(s) by mouth Once a day Unchanged meclizine (meclizine 25 mg oral tablet) 1 tab(s) by mouth Three (3) times a day as needed for as needed for dizziness Unchanged Misc Medication allergy med Unchanged multivitamin (Multivitamin) 1 tab(s) by mouth Every day Please take this list to your next doctor s visit. Bring all medications you take, including over the counter medications, herbals and other supplements with you to your doctor s visit. Patients and families are reminded to discard old lists and to update any records with all medication providers or retail pharmacies. Education Materials Skin Tear (Skin Avulsion) A skin avulsion is a tearing of the top layer of skin. This commonly happens after a fall or other injury. It also tends to be more common in older people, or those taking blood thinners or steroids for long periods of time. Home care These guidelines will help you care for your wound at home: Keep the wound clean and dry for the first 24 to 48 hours, or as your healthcare provider advises. If there is a dressing or bandage, change it when it gets wet or dirty. Otherwise, leave it on for the first 24 hours, then change it once a day or as often as the doctor says. If stitches or elo were used, check the wound every day. After taking off the dressing, wash the area gently with soap and water. Clean as close to the stitches as you can. Avoid washing or rubbing the stitches directly. After 3 days you can keep the bandages off the wound, unless told otherwise, or there is continued drainage. Allow the wound to be open to the air. Keep a thin layer of antibiotic ointment on the cut. This will keep the wound clean, make it easierto remove the stitches, and reduce scarring. If your wound is oozing, you can put a nonstick dressing over it. Then, reapply the bandage or dressing as you were told. You can shower as usual after the first 24 hours, but don't soak the area in water (no baths or swimming) until the stitches or elo are taken out. If surgical tape was used, keep the area clean and dry. If it becomes wet, blot it dry with a cleantowel. If skin glue was used, don't put any creams, lotions, or antibiotic ointments on it. These can dissolve the glue. Usually the glue will flake off in about 5 to 10 days by itself. Try to resist picking it off before that so the wound doesn't open up. When it gets wet, pat it dry. Here is some information about medicine: You may use tgpo-dqr-uvnlshg medicine such as acetaminophen or ibuprofen to control pain, unless another pain medicine was given. If you have chronic liver or kidney disease or ever had a stomach ulcer or gastrointestinal bleeding, talk with your doctor before using these medicines. If you were given antibiotics, take them until they are all used up. It is important to finish the antibiotics even if the wound looks better. This will ensure that the infection has cleared. Follow-up care Follow up with your healthcare provider, or as advised. Watch for any signs of infection, such as increasing redness, swelling, or pus coming out. If this happens, don't wait for your scheduled visit. Instead, see a doctor sooner. Stitches or elo are usually taken out within 5 to 14 days. This varies depending on what part of your body they are on, and the type of wound. The doctor will tell you how long stitches should beleft in. If surgical tape was used, it is usually left on for 7 to 10 days. You can remove surgical tape after that unless you were told otherwise. If you try to remove it, and it is too hard, soaking can help. Surgical tape strips will eventually fall off on their own. If the edges of the cut pull apart, stop removing the tape or strips and follow up with your doctor As mentioned above, skin glue will flake off by itself in 5 to 10 days, so you don't need to pull it off. If any X-rays were done, you will be notified of any changes that may affect your care. When to seek medical advice Call your healthcare provider right away if any of these occur: Increasing pain in the wound Redness, swelling, or pus coming from the wound Fever of 100.4 F (38 C) or higher, or as directed by your healthcare provider Sutures or elo come apart or fall out before your next appointment and the wound edges look as if they will re-open Surgical tape closures fall off before 7 days, and the wound edges look as if they will re-open Bleeding not controlled by direct pressure 4385-9616 [employer]. [address] [place] [address], [place] [address]. All rights reserved. This information is not intended as a substitute for professional medical care. Always follow yourhealthcare professional's instructions. Additional Information VACCINATE! IT SAVES LIVES! Members of the community who have not yet received the COVID-19 vaccine and would like to receive it can visit one of [facility] vaccine clinics. There are many vaccine clinic locations within the [facility]. For locations and available times, please visit [email or web address]. It is important to note that some COVID mobile vaccine clinics are held outdoors and may be canceled in rainy orstormy conditions. To learn more about pediatric vaccinations (ages 5-11), we invite you to visit the [facility] webpage. [email or web address] [email or web address] learn more about the COVID-19 vaccine, we invite you to visit the [facility] website for a list of frequently asked questions. [email or web address] _[email or web address] [facility] Patient Portal Access Instructions: Stay connected with your healthcare team and access your personal medical information anytime with the [facility] Patient Portal. If you would like a full copy of your medical records please contact the [facility] Medical Records Department Thursday through Thursday between 8a.m. and 4:30p.m. Please follow the directions below to access the portal: 1.Access the email account you provided upon registration to the [facility].2.Look for an invitation email from [facility].3.Open the email and access the invitation link: Accept Invitation to [facility]4.Fill in the required chandler to create your account. Sign into [email or web address] with your username and password that you created in the above steps to stay up to date. You can then view a summary of results, a summary of your visits, and the ability to download your summaries to your computer or send the information securely to a physician. Remember that your healthcare information is confidential, so carefully consider who you will allow to register on the [facility] Patient Portal for access to your information. You can also access the [facility] Patient Portal on the Active-Semi mikal. Simply click on Health Records under [employer] and then click on the Karrie logo. HOW TO SAFELY DISPOSE OF PRESCRIPTION MEDICATIONS Please use one of the following methods to safely dispose of your unused medications. 1.Use a drug disposal kit: the drug disposal pouch allows you to safely discard your old and unuseddrugs. Ask your nurse to give you one when you are discharged.2.Visit a local take-back location: Many local pharmacies and police departments have programs that collect old and unwanted prescriptiondrugs. Call your local pharmacy or go to http://bit.ly/0T7Sb2n to find one close to you.3.Make use of household items: Use cat litter or old coffee grounds to dispose medications if other options arenot available. Mix your drugs with these household products, seal them in an airtight container andthrow it into the garbage. Call [facility]: [phone] to be sure your drugs can be disposed of in this way. Some medicines may require a different approach.4.Never flush your medications down the toilet. IF YOU HAVE BEEN PRESCRIBED AN OPIOIDS FOR PAIN If you have been prescribed an opioid (such as hydrocodone, oxycodone or morphine), it is critical to understand the possible side effects and risks of opioid pain medications. Even when taken as directed, opioids can have several side effects including: Tolerance, meaning you might need to take more of a medication for the same pain relief. Nausea, vomiting and/or constipation. Sleepiness, dizziness, dry mouth, confusion, depression or itching. Physical dependence, meaning you have withdrawal symptoms when a medication is stopped ? this can develop within a few days. KNOW YOUR RESPONSIBILITIES It is important to know exactly how much and how often to take the opioid pain medications you are prescribed. Never take opioids in higher amounts or more often than prescribed. Do not combine opioids with alcohol or other drugs that cause drowsiness, such as benzodiazepines, also known as benzos,including diazepam and alprazolam, muscle relaxants or sleep aids. Never sell or share prescriptionopioids. This is illegal. Store opioids in a secure place and out of reach of others (including children, family, friends and visitors). The last page(s) of this document has been signed and retained as a CHART COPY Signatures Patient Education Materials [employer] Medication Leaflets My discharge plan and instructions have been reviewed and explained to me and I,BRIE NUNO T understand my current condition and have read and understand these discharge instructions. I have received a written copy of the plan/instructions. If I have questions, I am aware that I should contact my doctor. Patient/Testing Projects Administrator Signature: Date/Time: Relationship to Patient: Witness Name/Signature: Date/Time: [facility]07-14-2022 Hospital Discharge instructions Patient Education 03/26/2022 22:50:40 Understanding Dizziness, Balance Problems, and Fainting Understanding Dizziness, Balance Problems, and Fainting The eyes, inner ear, joints, and muscles send signals to the brain to achieve balance. Balance is a group effort of the eyes, inner ear, joints, and muscles. They each send signals to the brain about body position and head movement. Then the brain uses this information to achieve balance. When the brain receives conflicting signals, or when there is a problem with blood flow, dizziness or fainting can happen. Vertigo Vertigo is the feeling of spinning. It may happen if the brain receives conflicting balance signals. Vertigo is often caused by a problem in the inner ear. Problems include changes in inner ear structures, infection, swelling, or excess fluid. Sometimes vertigo is due to a brain problem, such as migraine, stroke, or tumor. Dysequilibrium Dysequilibrium is the feeling of imbalance without a sense of spinning. It may happen if the signalpath between the body and brain is disrupted. There are many causes of dysequilibrium, including diabetes, anemia, head injury, and aging. Syncope Syncope is losing consciousness or fainting. The brain needs oxygen-rich blood to function. The heart pumps that blood to the brain. If there is a problem with the heart, blood flow (such as low blood pressure), or blood vessels, you may faint. 1305-9077 [employer]. [address] [place] [address]. All rights reserved. This information is not intended as a substitute for professional medical care. Always follow yourhealthcare professional's instructions. Follow Up Care 03/26/2022 21:11:15 With:NEUROCFADI DONOVAN Address: When:2-4 days With:SUZE MELCHOR DO Address: [address] [place] [phone] When:2-4 days [facility] 07-13-2022 Note Discharge Instructions Thank you for allowing [facility] to assist you with your healthcare needs. The following is importantdischarge information regarding your hospital visit. Diagnosis from Today's Visit dizzy What to Do Next Instructions from Your Care Team Diana Razo, you are ready to be discharged. You were seen and evaluated in the emergency room for dizziness and itching. You received Benadryl and Valium while here with improvement in your symptoms. Please follow-up closely with your neurologist and primary care physician to discuss your recent ER visit. Please seek immediate medical attention if your symptoms worsen or you develop new symptoms such as chest pain, difficulty breathing, change in your mental status, palpitations, severe abdominal pain or any other concerns. No qualifying data available. Post Acute Orders No qualifying data available. You Need to Schedule the Following Appointments Follow Up with [facility]PS When Within 2-4 days Where: Follow Up with SUZE MELCHOR DO When Within 2-4 days Where: [address] [place] [address] [place] [phone] Allergies Bactrim (Hives) Latex Peanuts (anaphylaxis) Tylenol with Codeine (Unknown) Vicodin (Latex) penicillin (Edema, Hives) Medications Please ask your primary doctor or pharmacist before taking any other medication not listed, including over the counter drugs, herbal medications, vitamins and or supplements as they may interact withyour home medications. What How Much When Why Instructions Last Dose Unchanged albuterol (ProAir HFA MDI (90 mcg/ inh) inhalation aerosol) 2 puff(s) by inhalation Every 4 hours as needed for as needed for wheezing Cough Unchanged ascorbic acid (Vitamin C 1000 mg oral tablet) by mouth Once a day Unchanged EPINEPHrine (EPINEPHrine 0.3 mg injectable kit) INJECT 0.3 ML INTO THE MID THIGH NEEDED FOR SEVERE ALLERGIC REACTION Unchanged famotidine (Pepcid 20 mg oral tablet) by mouth Two (2) times a day Unchanged fluticasone (Flovent HFA 110 mcg/ inh inhalation aerosol) 1 puff(s) by inhalation Two (2) times a day rinse mouth and throat after use Unchanged herbal/ nutritional product (Probiotic) Unchanged linaclotide (Linzess 145 mcg oral capsule) 1 cap by mouth Once a day before a meal 30 minutes before breakfast. Do NOT crush/ chew Unchanged liraglutide (Saxenda 18 mg/ 3 mL subcutaneous solution) See instructions 0.6 mg Subcutaneous qDay 7 day(s), increase by 0.6mg/ day in weekly intervals until 3mg/ day is achieved Unchanged meclizine (meclizine 25 mg oral tablet) 1 tab(s) by mouth Three (3) times a day as needed for as needed for dizziness Unchanged meloxicam (meloxicam 15 mg oral tablet) 1 tab(s) by mouth Once a day Unchanged Misc Medication allergy med Unchanged multivitamin (Multivitamin) 1 tab(s) by mouth Every day Unchanged multivitamin, ( Multivitamins with FA 0.8 mg oral tablet) 1 tab(s) by mouth Every day Duration: 30 Days Unchanged polyethylene glycol 3350 (Miralax Powder Packet) by mouth Once a day Unchanged triamcinolone topical (triamcinolone 0.5% topical ointment) 1 application Topical Two (2) times a day Duration: 14 Days Please take this list to your next doctor s visit. Bring all medications you take, including over the counter medications, herbals and other supplements with you to your doctor s visit. Patients and families are reminded to discard old lists and to update any records with all medication providers or retail pharmacies. Education Materials Understanding Dizziness, Balance Problems, and Fainting The eyes, inner ear, joints, and muscles send signals to the brain to achieve balance. Balance is a group effort of the eyes, inner ear, joints, and muscles. They each send signals to the brain about body position and head movement. Then the brain uses this information to achieve balance. When the brain receives conflicting signals, or when there is a problem with blood flow, dizziness or fainting can happen. Vertigo Vertigo is the feeling of spinning. It may happen if the brain receives conflicting balance signals. Vertigo is often caused by a problem in the inner ear. Problems include changes in inner ear structures, infection, swelling, or excess fluid. Sometimes vertigo is due to a brain problem, such as migraine, stroke, or tumor. Dysequilibrium Dysequilibrium is the feeling of imbalance without a sense of spinning. It may happen if the signalpath between the body and brain is disrupted. There are many causes of dysequilibrium, including diabetes, anemia, head injury, and aging. Syncope Syncope is losing consciousness or fainting. The brain needs oxygen-rich blood to function. The heart pumps that blood to the brain. If there is a problem with the heart, blood flow (such as low blood pressure), or blood vessels, you may faint. [id number] [employer]. [address] [place] [address], [place] [address]. All rights reserved. This information is not intended as a substitute for professional medical care. Always follow yourhealthcare professional's instructions. Additional Information VACCINATE! IT SAVES LIVES! Members of the community who have not yet received the COVID-19 vaccine and would like to receive it can visit one of [facility] vaccine clinics. There are many vaccine clinic locations within the [facility]. For locations and available times, please visit [email or web address]. It is important to note that some COVID mobile vaccine clinics are held outdoors and may be canceled in rainy orstormy conditions. To learn more about pediatric vaccinations (ages 5-11), we invite you to visit the [facility] webpage. [email or web address]/[email or web address] [email or web address] learn more about the COVID-19 vaccine, we invite you to visit the [facility] website for a list of frequently asked questions. [email or web address] [facility] Patient Portal Access Instructions: Stay connected with your healthcare team and access your personal medical information anytime with the [facility] Patient Portal. If you would like a full copy of your medical records please contact the [facility] Medical Records Department Thursday through Thursday between 8a.m. and 4:30p.m. Please follow the directions below to access the portal: 1.Access the email account you provided upon registration to the hospital.2.Look for an invitation email from [facility].3.Open the email and access the invitation link: Accept Invitation to [facility]4.Fill in the required chandler to create your account. Sign into [email or web address] with your username and password that you created in the above steps to stay up to date. You can then view a summary of results, a summary of your visits, and the ability to download your summaries to your computer or send the information securely to a physician. Remember that your healthcare information is confidential, so carefully consider who you will allow to register on the [facility] Patient Portal for access to your information. You can also access the [facility] Patient Portal on the Active-Semi mikal. Simply click on Health Records under [employer] and then click on the [employer] logo. HOW TO SAFELY DISPOSE OF PRESCRIPTION MEDICATIONS Please use one of the following methods to safely dispose of your unused medications. 1.Use a drug disposal kit: the drug disposal pouch allows you to safely discard your old and unuseddrugs. Ask your nurse to give you one when you are discharged.2.Visit a local take-back location: Many local pharmacies and police departments have programs that collect old and unwanted prescriptiondrugs. Call your local pharmacy or go to http://The Personal Bee.ipnexus/5I3Pv4t to find one close to you.3.Make use of household items: Use cat litter or old coffee grounds to dispose medications if other options arenot available. Mix your drugs with these household products, seal them in an airtight container andthrow it into the garbage. Call [facility]: [phone] to be sure your drugs can be disposed of in this way. Some medicines may require a different approach.4.Never flush your medications down the toilet. IF YOU HAVE BEEN PRESCRIBED AN OPIOIDS FOR PAIN If you have been prescribed an opioid (such as hydrocodone, oxycodone or morphine), it is critical to understand the possible side effects and risks of opioid pain medications. Even when taken as directed, opioids can have several side effects including: Tolerance, meaning you might need to take more of a medication for the same pain relief. Nausea, vomiting and/or constipation. Sleepiness, dizziness, dry mouth, confusion, depression or itching. Physical dependence, meaning you have withdrawal symptoms when a medication is stopped ? this can develop within a few days. KNOW YOUR RESPONSIBILITIES It is important to know exactly how much and how often to take the opioid pain medications you are prescribed. Never take opioids in higher amounts or more often than prescribed. Do not combine opioids with alcohol or other drugs that cause drowsiness, such as benzodiazepines, also known as benzos,including diazepam and alprazolam, muscle relaxants or sleep aids. Never sell or share prescriptionopioids. This is illegal. Store opioids in a secure place and out of reach of others (including children, family, friends and visitors). The last page(s) of this document has been signed and retained as a CHART COPY Signatures Patient Education Materials Understanding Dizziness, Balance Problems, and Fainting Medication Leaflets My discharge plan and instructions have been reviewed and explained to me and I,NUNO BRIE T understand my current condition and have read and understand these discharge instructions. I have received a written copy of the plan/instructions. If I have questions, I am aware that I should contact my doctor. Patient/Testing Projects Administrator Signature: Date/Time: Relationship to Patient: Witness Name/Signature: Date/Time: [facility]10-25-2021 Hospital Discharge instructions Patient Education 07/08/2021 12:31:44 Ovarian Cyst Ovarian Cysts The ovaries are two small organs located on each side of a woman s uterus (womb). They are part of the female reproductive system. Ovarian cysts are sacs filled with fluid or tissue that form on or inside the ovaries. Ovarian cysts are common in women, especially during childbearing years. There are different types of cysts. Most are harmless (benign) and go away on their own. They often cause no symptoms. If symptoms do occur, they can include mild pain or pressure in the lower belly (abdomen). Cysts that are large or break (rupture) may cause more severe pain and symptoms. In these cases, you may need hospital care or treatment such as surgery. You may need more extensive treatment if a cyst causes an ovary to twist (called torsion) or if your doctor suspects your cyst is cancerous. Keepin mind that most cysts are not cancerous, however. General care To help relieve pain, your healthcare provider may recommend using rolq-hnq-fbggzgm pain medicine. If needed, your provide may prescribe stronger pain medicine. Depending on the type of cyst you have, your healthcare provider may advise taking control pills. These help shrink cysts in certain cases. They may also help prevent new cysts from forming. Besure to take these medicines as directed if they are prescribed. Your healthcare provider may advise you to watch your symptoms over time to see if they go away or worsen. Regular ultrasound tests may also be advised. These can help check if a cyst goes away or grows in size. Follow-up care Follow up with your healthcare provider, or as advised. When to seek medical advice Call your healthcare provider right away if any of these occur: Pain worsens or fails to get better with home treatment Fever of 100.4 F (38 C) or higher (or other fever amount directed by your healthcare provider) Nausea and vomiting Weakness, dizziness, or fainting Abnormal vaginal bleeding 3903-9170 [employer]. [address] [place] [address]. All rights reserved. This information is not intended as a substitute for professional medical care. Always follow yourhealthcare professional's instructions. Follow Up Care 07/08/2021 09:44:01 With:SUZE MELCHOR DO Address: [address] [place] [address] [place] [address] [phone] When:2-4 days [facility] 10-25-2021 NoteHNO ID: [id number] Author: Dmitriy Ramirez APRN.NEEDLEWORKER Service: ? Author Type: Nurse Practitioner Type: Progress Notes Filed: 07/08/2021 9:21 AM Note Text: Subjective HPI Nontoxic-appearing female presents urgent care chief complaint abdominal pain. Duration of symptoms 1 day. Associated symptoms nausea vomiting dizziness umbilicus/right lower quadrant pain. Duration of symptoms 1 day. Associated symptoms listed above. Patient states presents today due to increasing abdominal pain. States 8 out of 10 at rest and on 10 if palpating over right lower quadrant and umbilicus area. Patient states history of gallbladder removal. No other abdominal surgeries. States they are trying to conceive have been unsuccessful for the past year. Does not know she is currently . Denies any fever body aches chills cough change in bowel or bladder habit. Past medical history prescription medication use allergies reviewed. .Patient presents with: Vomiting: light headed, mid stomach sharp pain x1 day PAST MEDICAL HISTORY Diagnosis Date - NEGATIVE MEDICAL HISTORY PAST SURGICAL HISTORY Procedure Laterality Date - CHOLECYSTECTOMY HX - TONSILLECTOMY HX ALLERGIES Bactrim [Sulfamethoxazole-Trimethoprim], Hydrocodone-Acetaminophen, Latex, and Penicillin MEDICATIONS ALBUTEROL SULFATE ORAL Take by mouth. Methenamine Hippurate (HIPREX) 1 gram tablet Take 1 g by mouth. MULTIVITAMIN ORAL Take by mouth. levocetirizine dihydrochloride (XYZAL ORAL) Take by mouth. phenazopyridine (PYRIDIUM, GERIDIUM) 100 mg tablet Take 2 tablets by mouth three times daily as needed. buPROPion HCL, smoking deter, (ZYBAN) 150 mg tab ER 12 hr Take by mouth. Norethindrone, Contraceptive, 0.35 mg tablet Take 1 tablet by mouth once daily. benzonatate (TESSALON PERLE) 100 mg capsule Take 2 capsules by mouth three times daily as needed. etonogestrel (NEXPLANON) subdermal implant 68 mg 68 mg by SUBDERMAL route one time only. meloxicam (MOBIC) 7.5 mg tablet escitalopram oxalate (LEXAPRO) 10 mg tablet History reviewed. No pertinent family history. Social History Tobacco Use - Smoking status: Never Smoker - Smokeless tobacco: Never Used Vaping Use - Vaping Use: Never used Substance Use Topics - Alcohol use: Never - Drug use: Never BP 126/78 Pulse 77 Temp 36.6 ?C (97.9 ?F) Resp 16 Wt 131.8 kg (290 lb 9.6 oz) LMP 09/05/2019 (Approximate) SpO2 98% Review of Systems Constitutional: Negative for chills, fever and malaise/fatigue. HENT: Negative for congestion, ear discharge, ear pain, sinus pain and sore throat. Eyes: Negative for blurred vision, pain, discharge and redness. Respiratory: Negative for cough, sputum production, shortness of breath, wheezing and stridor. Cardiovascular: Negative for chest pain. Gastrointestinal: Negative for abdominal pain, diarrhea, nausea and vomiting. Musculoskeletal: Negative for myalgias. Skin: Negative for itching and rash. Neurological: Negative for dizziness and headaches. Objective Physical Exam Constitutional: General: She is not in acute distress. Appearance: She is not diaphoretic. HENT: Head: Normocephalic. Eyes: Conjunctiva/sclera: Conjunctivae normal. Pupils: Pupils are equal, round, and reactive to light. Cardiovascular: Rate and Rhythm: Normal rate and regular rhythm. Heart sounds: Normal heart sounds. Pulmonary: Effort: Pulmonary effort is normal. No tachypnea, accessory muscle usage or respiratory distress. Breath sounds: Normal breath sounds. No stridor. Abdominal: Palpations: Abdomen is soft. Tenderness: There is abdominal tenderness in the right lower quadrant and periumbilical area. Musculoskeletal: Cervical back: Normal range of motion and neck supple. No rigidity or tenderness. Lymphadenopathy: Cervical: No cervical adenopathy. Skin: General: Skin is warm and dry. Neurological: Mental Status: She is alert and oriented to person, place, and time. ASSESSMENT/PLAN: 1. Right lower quadrant abdominal pain - ICD9: 789.03, ICD10: R10.31 With patient's abdominal pain with palpation right lower quadrant I recommended patient be seen in ED for further evaluation care. Patient verbalized understanding agreed with plan of care. Dmitriy Ramirez APRN.[facility] Future App[facility]ments Appointment Date:07/16/2021 08:20:00 AM Scheduled Provider:SUZE MELCHOR DO Location:[facility] Appointment Type:[facility] ED Follow Up [facility] Evaluation + Plan note Future Appointments Appointment Date:11/04/2021 08:30:00 AM Scheduled Provider:EMI HOPPER MD Location:[facility] Appointment Type:[facility] Appointment Date:11/05/2021 07:30:00 AM Scheduled Provider:SUZE MELCHOR DO Location:[facility] Appointment Type: OV Appointment Date:03/04/2022 08:40:00 AM Scheduled Provider:SUZE MELCHOR DO Location:[facility] Appointment Type: OV [facility] Evaluation + Plan note Future Appointments Appointment Date:06/02/2022 09:00:00 AM Scheduled Provider:EMI HOPPER MD Location:[facility] Appointment Type:[facility] OB Routine Follow Up Appointment Date:09/09/2022 07:30:00 AM Scheduled Provider:SUZE MELCHOR DO Location:[facility] Appointment Type:PC OV [facility] Evaluation + Plan note Future Appointments Appointment Date:06/02/2022 09:00:00 AM Scheduled Provider:EMI HOPPER MD Location: [facility] Appointment Type: OV OB Routine Follow Up Appointment Date:09/09/2022 07:30:00 AM Scheduled Provider:SUZE MELCHOR DO Location:[facility] Appointment Type:PC OV Future Scheduled Tests Laboratory* hCG, quantitative(AO) 04/24/22 [facility] Evaluation + Plan note Future Appointments Appointment Date:06/02/2022 09:00:00 AM Scheduled Provider:EMI HOPPER MD Location:[facility] Appointment Type: OV OB Routine Follow Up Appointment Date:09/09/2022 07:30:00 AM Scheduled Provider:SUZE MELCHOR DO Location:[facility] Appointment Type:PC OV Diagnostic Tests Pending * Urine Culture 05/02/22 Future Scheduled Tests Laboratory* hCG, quantitative(AO) 04/24/22 [facility] Evaluation + Plan note Future Appointments Appointment Date:06/16/2022 10:00:00 AM Scheduled Provider:EMI HOPPER MD Location:[facility] Appointment Type: OV OB Routine Follow Up Appointment Date:06/19/2022 09:00:00 AM Scheduled Provider:HOLLAND HO Location:[facility] Appointment Type:CV OV Appointment Date:09/09/2022 07:30:00 AM Scheduled Provider:SZUE MELCHOR DO Location:[facility] Appointment Type:PC OV Future Scheduled Tests Laboratory* hCG, quantitative(AO) 04/24/22 [facility] Evaluation + Plan note Future Appointments Appointment Date:11/28/2022 09:00:00 AM Scheduled Provider: Location:[facility] Appointment Type:CV OV Appointment Date:02/26/2023 07:30:00 AM Scheduled Provider:SUZE MELCHOR DO Location:[facility] Appointment Type:PC OV Future Scheduled Tests Laboratory* hCG, quantitative(AO) 04/24/22 [facility] Evaluation + Plan note Future Appointments Appointment Date:02/26/2023 07:30:00 AM Scheduled Provider:SUZE MELCHOR DO Location:[facility] Appointment Type:PC OV Appointment Date:06/03/2023 09:30:00 AM Scheduled Provider:HOLLAND HO Location:[facility] Appointment Type:CV OV Future Scheduled Tests Laboratory* hCG, quantitative(AO) 04/24/22 [facility] Evaluation + Plan note Future Appointments Appointment Date:06/03/2023 09:30:00 AM Scheduled Provider:HOLLAND HO Location:[facility] Appointment Type:CV OV Appointment Date:08/27/2023 07:30:00 AM Scheduled Provider:SUZE MELCHOR DO Location:[facility] Appointment Type:PC OV Follow Up Future Scheduled Tests Laboratory* hCG, quantitative(AO) 04/24/22 [facility] Evaluation + Plan note Future Appointments Appointment Date:06/03/2023 09:30:00 AM Scheduled Provider:HOLL[place] HO Location:[facility] Appointment Type:CV OV Appointment Date:08/27/2023 07:30:00 AM Scheduled Provider:SUZE MELCHOR DO Location:[facility] Appointment Type:PC OV Follow Up Future Scheduled Tests Laboratory* Magnesium Level 05/05/23 * Thyroid Antibodies 05/07/23 * Thyroid Stimulating Hormone 05/05/23 * Thyroid Stimulating Hormone 05/07/23 * Free T4 05/07/23 * Vitamin B12 Level 05/05/23 * Total T3 05/07/23 * Vitamin D Level 05/05/23 * Vitamin D Level 05/07/23 * Complete Metabolic Panel 05/05/23 [facility] Evaluation + Plan note Future Appointments Appointment Date:08/27/2023 07:30:00 AM Scheduled Provider:SUZE MELCHOR DO Location:[facility] Appointment Type:PC OV Follow Up Appointment Date:09/17/2023 08:45:00 AM Scheduled Provider:EMI HOPPER MD Location:[facility] Appointment Type:[facility] OV Appointment Date:02/16/2024 09:30:00 AM Scheduled Provider:HOLLAND HO Location:[facility] Appointment Type:CV OV Future Scheduled Tests Laboratory* Magnesium Level 05/05/23 * Thyroid Antibodies 05/07/23 * Thyroid Stimulating Hormone 05/05/23 * Thyroid Stimulating Hormone 05/07/23 * Free T4 05/07/23 * Vitamin B12 Level 05/05/23 * Total T3 05/07/23 * Vitamin D Level 05/05/23 * Vitamin D Level 05/07/23 * Complete Metabolic Panel 05/05/23 [facility] course Narrative No data available for this section [facility] Hospital Discharge instructions No data available for this section [facility] Progress note No data available for this section [facility] Summary Purpose Family History No Family History Records FoundNo Family History Records FoundNo Family History Records FoundNo Family History Records Found No data available for this section No data available for this section No Family History Records Found Advance Directives No Advanced Directives Records FoundNo Advanced Directives Records FoundNo Advanced Directives Records FoundNo Advanced Directives Records FoundNo Advanced Directives Records Found Additional Source Comments INFORMATION SOURCE (unrecogn ized section and content) DATE CREATED AUTHOR AUTHOR'S ORGANIZ ATION 11/02/2021 [facility] DATE CREATED AUTHOR AUTHOR'S ORGANIZ ATION 04/05/2022 [facility] DATE CREATED AUTHOR AUTHOR'S ORGANIZ ATION 08/14/2022 [facility] DATE CREATED AUTHOR AUTHOR'S ORGANIZ ATION 09/25/2023 [facility] ([place] Care Team (unrecognized sect ion and content) Care Team Personnel Name: SUZE MELCHOR DO Position: P4 Physician - Primary Care Med Service: Active Provider Member Role: Primary Care Physician Address: Address: [address] [place] [address] Care Team Related Persons Name: ISAAC CANTU Care Team Personnel Name: SUZE MELCHOR DO Position: P4 Physician - Primary Care Med Service: Active Provider Member Role: Primary Care Physician Address: Address: [address] [place] [address] Care Team Related Persons Name: ISAAC CANTU Care Team Personnel Name: SUZE MELCHOR DO Position: P4 Physician - Primary Care Med Service: Active Provider Member Role: Primary Care Physician Address: Address: [address] [place] [address] Care Team Related Persons Name: ISAAC CANTU Care Team Personnel Name: SUZE MELCHOR DO Position: P4 Physician - Primary Care Med Service: Active Provider Member Role: Primary Care Physician Address: Address: [address] [place] [address] Care Team Related Persons Name: ISAAC CANTU Care Team Personnel Name: SUZE MELCHOR DO Position: P4 Physician - Primary Care Member Role: Primary Care Physician Address: Address: [address] [place] [address] Name: MORGAN FUNK MD Position: ED Physician Member Role: Attending Physician Address: Address: [address] [place] [address] Name: Milka Cote RN Position: AO RN Member Role: ED RN Care Team Related Persons Name: ISAAC CANTU Source Comments (unrecognize d section and content) In the event this informatio n is protected by the Federal Confidentiality of Alcohol and Drug Abuse Patient Records regulations: The Federal rules restrict any use of the information to criminally investigate or prosecute any alcohol or drug abuse patient.[facility] Reason for Visit (unrecogniz ed section and content) Care Teams (unrecognized sec tion and content) FOR RECORDS PERTAINING TO PATIENTS WHO ARE OR HAVE BEEN ENROLLED IN A CHEMICAL DEPENDENCY/SUBSTANCEABUSE PROGRAM, SOME INFORMATION MAY BE OMITTED. This clinical summary was aggregated from multiple sources. Caution should be exercised in using it in the provision of clinical care. This summary normalizes information from multiple sources, and as a consequence, information in this document may materially change the coding, format and clinical context of patient data. In addition, data may be omitted in some cases. CLINICAL DECISIONS SHOULD BE BASED ON THE PRIMARY CLINICAL RECORDS. [facility] [facility]. provides no warranty or guarantee of the accuracy or completeness of information in this document.
[2023-10-13 14:58] LABS: Ferritin 143 ng/mL (8-252); Iron 58 ug/dL (50-170); Iron Binding Capacity,Total 269 ug/dL (250-450); PERCENT IRON SATURATION 21.6 % (15.0-55.0); Thyroid Stim Hormone (TSH) 3.55 uIU/mL (0.358-3.74)
== END | disposition home or self-care (01) ==
LOC: LAB 13:13
PROVIDERS: Referring Provider Psychiatry & Neurology Neurology; Visit Provider Psychiatry & Neurology Neurology
DX: R25.2 Cramp and spasm (principal)
CPT/HCPCS: 36415; 82728; 83540; 83550; 84439; 84443

== ENCOUNTER → 2023-11-26 | Outpatient (CLI) | payer OTHER, SELFPAY ==
[2023-12-01 21:07] LABS: Cashew <0.10 kU/L (Class 0); Clam <0.10 kU/L (Class 0); Codfish <0.10 kU/L (Class 0); Corn <0.10 kU/L (Class 0); Egg, White <0.10 kU/L (Class 0); Milk (Cow) <0.10 kU/L (Class 0); Peanut <0.10 kU/L (Class 0); Pistachio Nut <0.10 kU/L (Class 0); SCALLOP <0.10 kU/L (Class 0); SESAME SEED <0.10 kU/L (Class 0); Shrimp <0.10 kU/L (Class 0); Soybean <0.10 kU/L (Class 0); Walnut, (Food) <0.10 kU/L (Class 0); Wheat <0.10 kU/L (Class 0)
== END | disposition home or self-care (01) ==
LOC: LAB 11:26
PROVIDERS: Referring Provider Otolaryngology Otolaryngology/Facial Plastic Surgery; Visit Provider Otolaryngology Otolaryngology/Facial Plastic Surgery
DX: T78.40XA Allergy, unspecified, initial encounter (principal)
CPT/HCPCS: 36415; 86003

== ENCOUNTER → 2024-04-12 | Outpatient (CLI) | payer OTHER, SELFPAY ==
--- NOTE | 2024-04-12 08:12 | EKG12_ITS ---
Test Reason : MED CHECK Blood Pressure : / mmHG Vent. Rate : 088 BPM Atrial Rate : 088 BPM P-R Int : 138 ms QRS Dur : 086 ms QT Int : 374 ms P-R-T Axes : 043 072 -16 degrees QTc Int : 452 ms Normal sinus rhythm T wave abnormality, consider inferior ischemia Abnormal ECG Confirmed by MAI DOOLEY, JOYCE ([id number]), slot editor ALYCE STEPHENS ([id number]) on 04/15/2024 10:12:54 AM Referred By: Vonnie Walker Confirmed By:RUY ONEILL MD
== END | disposition home or self-care (01) ==
PROVIDERS: Referring Provider Physician Assistant; Visit Provider Physician Assistant
DX: R00.2 Palpitations (principal); G90.A Postural orthostatic tachycardia syndrome [POTS]
CPT/HCPCS: 93005